=== PATIENT | male | born 1950 | race African-American/Black ===

== ENCOUNTER 2018-06-25 15:48 | Inpatient (IN) ==
--- NOTE | 2018-06-25 16:27 | Emergency Department Note ---
Addendum entered and electronically signed by Eddie Hale DO 06/25/18 20:59: This addendum serves to add additional medical decision-making: I discussed in detail with the patient his left lower extremity DVT, the fact that this occurred while he was on Xarelto, the need for Lovenox. Also discussed concerns about his worsening edema. Heart rate at bedside is 130s to 140s atrial fibrillation. He is not received his home dose metoprolol or clonidine; will provide these as well as 40 mg IV Lasix. Neither the patient nor the family at bedside having additional concerns at this time. Patient has been admitted for continued evaluation and management. Original Note: Disposition Clinical Impression: Anasarca Acute deep vein thrombosis (DVT) of left lower extremity Qualifiers: Affected thrombotic vein of extremity: femoral Qualified Code(s): I82.412 - Acute embolism and thrombosis of left femoral vein Disposition: Admitted As Inpatient Referrals: NONE,PCP [Primary Care Provider] - Forms: ED Satisfaction Letter Time of Disposition: 19:45 General Adult HPI - General Chief complaint: ED Extremity Injury, Lower Stated complaint: lower leg pain Time Seen by Provider: 06/25/18 16:08 Source: patient, family, EMS Nursing Notes Reviewed: Yes Vital Signs Reviewed: Yes - History of Present Illness HPI Narrative: 67-year-old male presents from home for evaluation of worsening scrotal edema, worsening left lower extremity edema. His been ongoing however notably worse or last several days. Patient's son is bedside and describes weeping of the edema both of his scrotum as well as left lower extremity. These areas are exquisitely painful to the patient. He recently had right upper extremity DVT and is currently on Xarelto. He has been compliant with his medications. He is here both for the pain as well as the worsening edema Which has worsened despite his Lasix. History of cardinoid tumor of small intestine, with metastasis to the liver, upper abdominal lymph nodes, diaphragm, intrathoracic lymph nodes. Paracentesis 06/06 secondary to ascites suspected to be from metastatic cancer. Currently full code, receiving cancer treatment. Follows with [facility]. History of atrial fibrillation, chronic kidney disease. ROS: Positive: As above Negative: Fever, chills, nausea, vomiting, chest pains, palpitations, cough, shortness of breath Pain Scale: 5 - Related Data Home Medications Medication Instructions Recorded Confirmed Amlodipine Besylate 10 mg PO DAILY 02/12/17 06/25/18 Metoprolol Tartrate [Lopressor] 100 mg PO BID 02/12/17 06/25/18 cloNIDine HCl [Clonidine HCl] 0.2 mg PO TID 02/12/17 06/25/18 Ergocalciferol (VITAMIN D2) 50,000 unit PO QWEEK 06/03/18 06/25/18 [Vitamin D2] Previous Rx's Medication Instructions Recorded Rivaroxaban [Xarelto] 20 mg PO 1700 #30 tablet 06/08/18 Docusate [Colace] 100 mg PO BID 30 Days #60 capsule 06/12/18 Methadone 10 mg PO Q8HR 30 Days #90 tablet 06/12/18 Furosemide [Lasix] 40 mg PO DAILY #7 tablet 06/23/18 Potassium Chloride 20 meq PO DAILY #7 tab.er.prt 06/23/18 Allergies Allergy/AdvReac Type Severity Reaction Status Date / Time acetaminophen [From Vicodin] Allergy Rash Verified 06/12/18 15:52 hydrocodone [From Vicodin] Allergy Rash Verified 06/12/18 15:52 shellfish derived Allergy Anaphylaxis Verified 06/12/18 15:52 All systems ED: reviewed and negative except as stated. Review of Systems: As Per HPI Past Medical History - Past Medical History Medical history: Reports: cancer, hypertension Surgical history: Reports: knee replacement Psychiatric history: Reports: no psych history - Social History Smoking Status: Current every day smoker Smokeless Tobacco Status: No Alcohol use: Reports: none Drug use: Reports: none Physical Exam Vital Signs Reviewed General: Patient is alert, oriented, and in mild distress from the pain of his edema Head: atraumatic, normocephalic Eye: normal appearance, no scleral icterus, no conjunctival injection ENT: mucous membranes moist, normal external ear exam Neck: normal inspection, trachea midline, full ROM Chest: normal inspection, symmetric chest rise Respiratory: Poor respiratory effort. Bilateral breath sounds are clear without wheezing, crackles, or rhonchi. Cardiovascular: Regular rate and rhythm. No clicks, rubs, gallops, or murmors. Normal heart sounds. Left lower extremity is notably swollen versus right from groin to toes with 3+ pitting edema and weeping of the lower left leg. Patient has edema to the scrotum and penis subsequent penile glans is no longer visible. Abdomen: Bowel sounds present normoactive. Abdomen is soft, nondistended, and nontender. No guarding or rebound. Musculoskeletal: Spontaneously moving all extremities. Skin: warm, dry, intact. Neuro: GCS 15. Alert and oriented x4. Sensation light touch intact in bilateral lower extremity is. Psych: Patient's affect is appropriate for situation. Course Course Narrative: EKG dated 06/25/18 at 17:09 interpreted as atrial fibrillation with a rate of 128. QRS 95, QTC 478. Normal axis. Nonspecific ST-T changes. Compared to previous dated 06/02/2018 showing no acute ischemic changes comparison. - Reevaluation(s) Reevaluation #1: Due to patient being a difficult IV stick with the midline team was able to use ultrasound guided midline placed successfully patient got IV Dilaudid for pain control patient had a Doppler study in his lower extremity. Formal report from the traffic analysis technician states that it is positive for noncompressible left common femoral vein was positive for DVT. Patient be getting 1 mg/kg subcutaneous Lovenox. Awaiting remainder of the labs and then patient will be admitted. Time: 18:35 Reevaluation #2: Patient's DVT study came back positive for left lower extremity DVT that new patient given 1 m/kg subcutaneous Lovenox. Discussed case with the hospitalist, graciously accepted the patient for admission. Patient family so informed. Pain is being managed. Patient minute in stable condition Time: 19:44 Vital Signs Temperature 99.2 F 06/25/18 15:54 Pulse Rate 110 06/25/18 15:54 Respiratory Rate 20 06/25/18 15:54 Blood Pressure 149/109 06/25/18 15:54 O2 Sat by Pulse Oximetry 94 06/25/18 15:54 Temperature 99.2 F 06/25/18 15:54 Pulse Rate 114 06/25/18 19:15 Respiratory Rate 20 06/25/18 19:15 Blood Pressure 154/116 06/25/18 19:15 O2 Sat by Pulse Oximetry 98 06/25/18 19:15 Oxygen Delivery Oxygen Delivery Room Air Medical Decision Making - Lab Data Result diagrams: 06/25/18 17:48 06/25/18 17:48 Lab Results 06/25/18 06/25/18 06/25/18 Range/Units 17:48 17:48 17:48 WBC 23.2 H (4.3-11.1) K/mcL RBC 3.90 L (4.19-5.50) M/mcL Hgb 10.5 L (12.9-16.9) g/dL Hct 31.9 L (37.5-50.1) % MCV 81.8 L (83.0-100.0) fL MCH 26.9 L (28.0-33.3) pg MCHC 32.9 (31.6-35.5) g/dL RDW 15.5 H (11.5-14.5) % Plt Count 218 (140-400) K/mcL MPV 11.5 (9.4-12.4) fL Immature Gran % 0.6 (0-4) % Seg Neutrophils % 92.8 % Lymphocytes % 2.5 % Monocytes % 4.0 % Eosinophils % 0.0 % Basophils % 0.1 % Neutrophils # 21.5 H (1.6-8.9) K/mcL Lymphocytes # 0.6 (0.6-4.6) K/mcL Monocytes # 0.9 (0.0-1.3) K/mcL Eosinophils # 0.0 (0.0-0.6) K/mcL Basophils # 0.0 (0.0-0.2) K/mcL PT 22.0 H (9.4-12.1) Seconds INR 2.0 Sodium 137 (136-145) mEq/L Potassium 3.7 (3.5-5.1) mEq/L Chloride 104 (98-107) mEq/L Carbon Dioxide 23 (23-29) mEq/L BUN 25 H (8-23) mg/dL Creatinine 1.86 H (0.70-1.30) mg/dL Est GFR ( Amer) 44 L (> 60) Est GFR (Non-Af Amer) 36 L (> 60) BUN/Creatinine Ratio 13 (6-26) Glucose 84 (70-105) mg/dL Calculated Osmolality 288 (280-300) Calcium 8.3 L (8.6-10.3) mg/dL Total Bilirubin 1.7 H (0.3-1.0) mg/dL Direct Bilirubin 0.8 H (0.0-0.2) mg/dL Indirect Bilirubin 0.9 (0.0-1.2) mg/dL AST 31 (13-39) Units/L ALT 19 (7-52) Units/L Alkaline Phosphatase 266 H (34-104) Units/L Serum Total Protein 6.7 (6.4-8.9) g/dL Albumin 2.6 L (3.5-5.7) g/dL Globulin 4.1 H (2.4-3.5) g/dL Albumin/Globulin Ratio 0.6 L (1.1-2.2)
--- NOTE | 2018-06-25 16:38 | Emergency Department Note ---
Disposition Clinical Impression: Anasarca Disposition: Still a Patient Forms: ED Satisfaction Letter General Adult HPI - General Chief complaint: ED Extremity Injury, Lower Stated complaint: lower leg pain Time Seen by Provider: 06/25/18 16:08 Source: patient, family, EMS Nursing Notes Reviewed: Yes Vital Signs Reviewed: Yes - History of Present Illness HPI Narrative: Attestation note: Patient was seen with the emergency medicine resident/nurse practitioner/physician patent legal assistant/transitional resident/medical student: Dr. Eddie Hale I have personally performed a face to face evaluation on this patient. I have reviewed and agree with history and physical examination patient management and disposition. Briefly the salient points of the case are as follows: 59-year-old male history of metastatic cancer presents with weeping swollen red and painful left lower extremity involving the entire left lower extremity prior history of DVTs is been put on several toe and it has only been recently in the past 3 months. Patient has had scrotal swelling and generalized anasarca. Patient will undergo diuresis Doppler study left lower extremity to exclude DVT despite being on several toe screening labs pain management patient will be admitted. Providing 30 minutes critical care service this patient. Admission disposition pending Pain Scale: 5 - Related Data Home Medications Medication Instructions Recorded Confirmed Amlodipine Besylate 10 mg PO DAILY 02/12/17 06/12/18 Metoprolol Tartrate [Lopressor] 100 mg PO BID 02/12/17 06/12/18 cloNIDine HCl [Clonidine HCl] 0.2 mg PO TID 02/12/17 06/12/18 Ergocalciferol (VITAMIN D2) 50,000 unit PO QWEEK 06/03/18 06/12/18 [Vitamin D2] Methadone Oral Concentrate 30 mg PO DAILY 06/03/18 06/12/18 [Methadone] Previous Rx's Medication Instructions Recorded Rivaroxaban [Xarelto] 20 mg PO 1700 #30 tablet 06/08/18 Docusate [Colace] 100 mg PO BID 30 Days #60 capsule 06/12/18 Methadone 10 mg PO Q8HR 30 Days #90 tablet 06/12/18 Supplies [SUPPLIES] 1 each .ROUTE DAILY #1 each 06/12/18 Furosemide [Lasix] 40 mg PO DAILY #7 tablet 06/23/18 Potassium Chloride 20 meq PO DAILY #7 tab.er.prt 06/23/18 Allergies Allergy/AdvReac Type Severity Reaction Status Date / Time acetaminophen [From Vicodin] Allergy Rash Verified 06/12/18 15:52 hydrocodone [From Vicodin] Allergy Rash Verified 06/12/18 15:52 shellfish derived Allergy Anaphylaxis Verified 06/12/18 15:52 Past Medical History - Past Medical History Medical history: Reports: cancer, hypertension Surgical history: Reports: knee replacement Psychiatric history: Reports: no psych history - Social History Smoking Status: Current every day smoker Smokeless Tobacco Status: No Alcohol use: Reports: none Drug use: Reports: none Course Vital Signs Temperature 99.2 F 06/25/18 15:54 Pulse Rate 110 06/25/18 15:54 Respiratory Rate 20 06/25/18 15:54 Blood Pressure 149/109 06/25/18 15:54 O2 Sat by Pulse Oximetry 94 06/25/18 15:54 Temperature 99.2 F 06/25/18 15:54 Pulse Rate 110 06/25/18 15:54 Respiratory Rate 20 06/25/18 15:54 Blood Pressure 149/109 06/25/18 15:54 O2 Sat by Pulse Oximetry 94 06/25/18 15:54 Oxygen Delivery Oxygen Delivery Room Air
[2018-06-25] MEDS ORDERED: *HR* HYDROmorphone (PF) 1 MG/ML SYRINGE IVP ONE ×2 (17:56→19:18)
[2018-06-25 18:04] LABS: Basophils % 0.1 %; Hematocrit 31.9 % (37.5-50.1); Hemoglobin 10.5 g/dL (12.9-16.9); Immature Granulocytes % 0.6 % (0-4); Lymphocytes # 0.6 K/mcL (0.6-4.6); Lymphocytes % 2.5 %; Mean Corpuscular HGB Conc 32.9 g/dL (31.6-35.5); Mean Corpuscular Hemoglobin 26.9 pg (28.0-33.3); Mean Corpuscular Volume 81.8 fL (83.0-100.0); Mean Platelet Volume 11.5 fL (9.4-12.4); Monocytes # 0.9 K/mcL (0.0-1.3); Neutrophils # 21.5 K/mcL (1.6-8.9); Platelet Count 218 K/mcL (140-400); Red Cell Distribution Width 15.5 % (11.5-14.5); Segmented Neutrophils % 92.8 %
[2018-06-25 18:23] LABS: Albumin 2.6 g/dL (3.5-5.7); Albumin/Globulin Ratio 0.6 (1.1-2.2); Bilirubin,Direct 0.8 mg/dL (0.0-0.2); Bilirubin,Indirect 0.9 mg/dL (0.0-1.2); Bilirubin,Total 1.7 mg/dL (0.3-1.0); Calcium 8.3 mg/dL (8.6-10.3); Globulin 4.1 g/dL (2.4-3.5); Potassium 3.7 mEq/L (3.5-5.1); Total Protein 6.7 g/dL (6.4-8.9)
[2018-06-25] MEDS ORDERED: *HR* Enoxaparin 150 MG/ML SYRINGE SQ STA (18:34)
--- NOTE | 2018-06-25 20:13 | Internal Med History&Physical ---
<Jere Becerril - Last Filed: 06/25/18 23:28> Date of Encounter: 06/25/18 Time of Encounter: 20:13 Internal Medicine - H&P: HPI History of present illness: Mr. Todd is a 67 year old male presenting with left lower leg pain. Patient states that since a week ago he has been having increasing symptoms of left lower extremity pain/tenderness, swelling, erythema, and warmth. Pain is rated 8.5 out of 10, constant, extending from the left lower hip down to the left middle thigh anteriorly and posteriorly. Nothing has relieved this pain including methadone the patient is on chronically for substance abuse. Patient also notes that he has been having increased swelling of his left testicle since his last admission on 06/08. At that visit his lisinopril, furosemide and HCTZ were held to be cleared by his PCP or developmental behavioral physician. He recently saw his oncologist one week ago and was restarted on furosemide. Patient also endorses chronic epigastric abdominal tenderness and productive cough which has been ongoing for the past couple weeks also seen in his family members. Denies fever, nausea, vomiting, chest pain, palpitations, shortness of breath, pleuritic chest pain, pain in the upper extremities and right lower extremity, changes in stool production, changes in urination. PMH: Hypertension, A. fib on metoprolol, carcinoid tumor of the small intestine, substance abuse on methadone, CKD with baseline creatinine 1.4-1.5., LE DVT, substance abuse on methadone. Labs at admission: WBC 23.2, creatinine 1.86, TBili 1.7, DBili 0.8, DBili 0.8, alk phosp 266 He has history of carcinoid tumor small intestine initially diagnosed in 2004 with recurrence in 2015 showing pleural-based lung nodules, liver lesions, retroperitoneal lymph nodes. On 06/08, he was hospitalized at [place] with anasarca, worsening pain, altered mental status, and extensive right upper extremity DVT. He was given paracentesis and given Zaroxolyn 20 mg daily. He recently underwent a paracentesis on 06/23 which showed slightly hazy fluid. Past Med Surg Social Fam HX - Past Medical History Medical history: cancer, hypertension Additional medical history: liver CA (previous colon CA). blood clot, on xarelto Psychiatric history: no psych history - Past Surgical History Surgical History: knee replacement Additional surgical history: bowel resection - Social History Smoking Status: Current every day smoker Smokeless Tobacco Status: No Alcohol use: none Drug use: none - Family History Mother Living Status: Father Living Status: Internal Medicine - H&P: Meds Amlodipine Besylate 10 mg PO DAILY 02/12/17 [History] Metoprolol Tartrate [Lopressor] 100 mg PO BID 02/12/17 [History] cloNIDine HCl [Clonidine HCl] 0.2 mg PO TID 02/12/17 [History] Ergocalciferol (VITAMIN D2) [Vitamin D2] 50,000 unit PO QWEEK 06/03/18 [History] Rivaroxaban [Xarelto] 20 mg PO 1700 #30 tablet 06/08/18 [Rx] Docusate [Colace] 100 mg PO BID 30 Days #60 capsule 06/12/18 [Rx] Methadone 10 mg PO Q8HR 30 Days #90 tablet 06/12/18 [Rx] Furosemide [Lasix] 40 mg PO DAILY #7 tablet 06/23/18 [Rx] Potassium Chloride 20 meq PO DAILY #7 tab.er.prt 06/23/18 [Rx] Allergy/AdvReac Type Severity Reaction Status Date / Time acetaminophen [From Vicodin] Allergy Rash Verified 06/12/18 15:52 hydrocodone [From Vicodin] Allergy Rash Verified 06/12/18 15:52 shellfish derived Allergy Anaphylaxis Verified 06/12/18 15:52 All Systems PM: A 10-system review of systems was performed and is negative for pertinent findings except as documented above in the HPI. - Constitutional Constitutional: malaise, weakness, no fever(s) - Cardiovascular Cardiovascular ROS IM: no chest pain, no palpitations - Respiratory Respiratory: cough (Cough with clear sputum.) - Gastrointestinal Gastrointestinal: abdominal pain (Mittie Admitted to diffuse abdominal tenderness especially in the epigastric area.), diarrhea (He has sudden diarrhea at baseline.), no change in bowel habits, no hematochezia, no melena - Genitourinary Genitourinary ROS male: scrotal swelling (Scrotal swelling since discharge on 1125), no dysuria, no penile discharge - Neurological Neurological ROS: no behavioral changes (Per family patient does not exhibit altered mental status seen on last admission.) - Constitutional Vitals: Temp Pulse Resp BP Pulse Ox 99.2 F 114 20 154/116 98 06/25/18 15:54 06/25/18 19:15 06/25/18 19:15 06/25/18 19:15 06/25/18 19:15 Exam: . - Head Head exam: Present: atraumatic, normal inspection - Eye Eye exam: Present: EOMI, normal appearance - Neck Neck exam general surgery: Present: supple, trachea midline - Respiratory Respiratory exam: Present: decreased breath sounds, CTAB. Absent: chest wall tenderness - Cardiovascular Cardiovascular exam: Present: RRR, +S1, +S2 - GI/Abdominal GI/Abdominal exam: Present: distended, firm, tenderness (Diffuse abdominal tenderness especially in the epigastric region.) - exam: Present: scrotal swelling (Scrotal swelling noted with drainage.), testicular tenderness. Absent: urethral discharge - Expanded Lower Extremities Exam Hip exam: Present: tenderness (Tenderness extending from his lower leg.) Upper Leg exam: Present: erythema (Erythema starting from his left lower hip down to his mid Calf.), swelling (Left lower extremity is swollen compared to right lower extremity.). Absent: abrasion, deformity, laceration Lower Leg exam: Present: erythema, swelling, tenderness. Absent: laceration - Neurological Exam Neurological exam: Present: alert, oriented X3, no focal deficits. Absent: altered - Psychiatric Psychiatric exam: Present: agitated, normal affect, normal mood - Skin Skin exam: Present: dry, erythema (Erythema in left lower extremity.), intact, warm Internal Med - H&P Results - Labs CBC & Chem 7: 06/25/18 17:48 06/25/18 17:48 Labs: Short CBC 06/25/18 Range/Units 17:48 WBC 23.2 H (4.3-11.1) K/mcL Hgb 10.5 L (12.9-16.9) g/dL Hct 31.9 L (37.5-50.1) % Plt Count 218 (140-400) K/mcL Neutrophils # 21.5 H (1.6-8.9) K/mcL BMP 06/25/18 17:48 Sodium 137 Potassium 3.7 Chloride 104 Carbon Dioxide 23 BUN 25 H Creatinine 1.86 H Glucose 84 Calcium 8.3 L Liver Function 06/25/18 Range/Units 17:48 Total Bilirubin 1.7 H (0.3-1.0) mg/dL Direct Bilirubin 0.8 H (0.0-0.2) mg/dL AST 31 (13-39) Units/L ALT 19 (7-52) Units/L Alkaline Phosphatase 266 H (34-104) Units/L Albumin 2.6 L (3.5-5.7) g/dL - Impressions ITS Impressions Chest X-Ray 06/25/18 16:31 IMPRESSION: Unchanged cardiomegaly without acute disease. D/ / Perez Contreras MD / Perez Contreras MD Interpreting Provider: Perez Contreras MD - Assessment and plan (1) Deep vein thrombosis (DVT) of proximal vein of left lower extremity Current Visit: Yes Status: Acute Assessment and plan: 59-year-old male presenting with left lower extremity pain. Doppler of lower extremities showed proximal DVT. Hold xarelto. Was given lovenox at ED at 6:30 PM, Patient has history of CKD with creatinine currently 1.8 elevated from baseline. Will switch to heparin drip at 6:30 AM when next dose is due. For pain management we will continue his home methadone. We will continue stool softeners for opioid related constipation. Qualifiers: Chronicity: acute Qualified Code(s): I82.4Y2 - Acute embolism and thrombosis of unspecified deep veins of left proximal lower extremity (2) Acute kidney injury superimposed on CKD Current Visit: No Status: Acute Assessment and plan: Patient presenting with creatinine of 1.8 up from baseline of 1.4-1.5 in recent visits. We will consult nephrology. We have discontinued his amlodipine but will continue his Lasix. He was given Lovenox at ED at 6:30 PM. We will discontinue this tomorrow morning at 6:30 AM and replace with heparin drip. (3) Arrhythmia Current Visit: No Status: Suspected Assessment and plan: Continue metoprolol and placed on cardiac monitoring. Qualifiers: Arrhythmia type: atrial fibrillation Atrial fibrillation type: unspecified Qualified Code(s): I48.91 - Unspecified atrial fibrillation (4) Sepsis Current Visit: Yes Status: Acute Assessment and plan: Patient is tachycardic in the 110 to 130s, has an elevated white blood cell count of 23.2meets sepsis criteria. Lactic acid ordered. Blood cultures ordered. Patient also recently had abdominal ascites tapped. That may be a source of infection. We will possibly do abdominal imaging later. Qualifiers: Sepsis type: sepsis due to unspecified organism Qualified Code(s): A41.9 - Sepsis, unspecified organism - Time Spent With Patient Total time spent is greater than 50% in coordination of care (as documented) at patient's floor/unit and/or counseling patient: <Feng Castellanos Evelyn - Last Filed: 06/26/18 07:33> Date of Encounter: 06/26/18 Internal Medicine - H&P: HPI History of present illness: Mr. Todd is a 67 year old male All Systems PM: A 10-system review of systems was performed and is negative for pertinent findings except as documented above in the HPI. - Constitutional Vitals: Temp Pulse Resp BP Pulse Ox 99.4 F 110 18 133/74 95 06/26/18 07:11 06/26/18 07:11 06/26/18 07:11 06/26/18 07:11 06/26/18 07:11 Internal Med - H&P Results - Labs CBC & Chem 7: 06/26/18 01:58 06/26/18 01:58 Labs: Short CBC 06/25/18 06/26/18 Range/Units 17:48 01:58 WBC 23.2 H 23.2 H (4.3-11.1) K/mcL Hgb 10.5 L 9.7 L (12.9-16.9) g/dL Hct 31.9 L 30.0 L (37.5-50.1) % Plt Count 218 214 (140-400) K/mcL Neutrophils # 21.5 H 21.1 H (1.6-8.9) K/mcL BMP 06/25/18 06/26/18 17:48 01:58 Sodium 137 137 Potassium 3.7 3.5 Chloride 104 105 Carbon Dioxide 23 21 L BUN 25 H 27 H Creatinine 1.86 H 1.89 H Glucose 84 79 Calcium 8.3 L 7.9 L Liver Function 06/25/18 Range/Units 17:48 Total Bilirubin 1.7 H (0.3-1.0) mg/dL Direct Bilirubin 0.8 H (0.0-0.2) mg/dL AST 31 (13-39) Units/L ALT 19 (7-52) Units/L Alkaline Phosphatase 266 H (34-104) Units/L Albumin 2.6 L (3.5-5.7) g/dL - Impressions ITS Impressions Chest X-Ray 06/25/18 16:31 IMPRESSION: Unchanged cardiomegaly without acute disease. D/ / Perez Contreras MD / Perez Contreras MD Interpreting Provider: Perez Contreras MD - Time Spent With Patient Total time spent is greater than 50% in coordination of care (as documented) at patient's floor/unit and/or counseling patient: - Attending Attestation I saw and evaluated the patient. I reviewed the residents note, performed my own physical examination and agree with findings and plan as documented in the residents note. Patient seen and examined on 06/26/18. Patient seen with son at bedside. Has diagnosis of metastatic cancer since early 1999's. Has chronic pain, and worsened since developing the DVT. Home dose of methadone given, patient able to sleep with this medication on. Will continue to monitor. Patient was given lovenox in the ER for DVT, will switch to heparin drip after 12 hours due to decreased renal function. Patient started back on lasix as well, has difficulty getting out of bed to urinate. With his scrotal swelling he ends up urinating on himself. He has some wounds on his legs due to the swelling, attempted to place a shields cath eter, however does not seem to fit well. Urology consult placed for better shields catheter fitting as well as to evaluate scrotal swelling. Consult placed to nephrology due to worsening renal function in the setting of lasix need (anasarca) and elevated lactic acid. Fluids contraindicated, appreciate recommendations.
[2018-06-25] MEDS ORDERED: cloNIDine HCl 0.1 MG TABLET PO STA (20:27)
[2018-06-25] MEDS ORDERED: Furosemide 40 MG/4 ML VIAL IVP ONE (20:28)
[2018-06-25] MEDS ORDERED: Naloxone 0.4 MG/ML INJ IVP PRN (21:54)
[2018-06-25] MEDS ORDERED: 0.9 % Sodium Chloride 1,000 ML IVC SCH (22:00)
[2018-06-26] MEDS: *HR* Methadone 10 MG TABLET PO SCH ×3 (01:06→16:33)
[2018-06-26] MEDS ORDERED: *HR* Promethazine 25 MG/ML VIAL IVP PRN (01:45)
[2018-06-26 03:10] LABS: Calcium 7.9 mg/dL (8.6-10.3); Potassium 3.5 mEq/L (3.5-5.1)
[2018-06-26 03:22] LABS: Basophils % 0.1 %; Hemoglobin 9.7 g/dL (12.9-16.9); Immature Granulocytes % 0.7 % (0-4); Lymphocytes # 0.8 K/mcL (0.6-4.6); Lymphocytes % 3.5 %; Mean Corpuscular HGB Conc 32.3 g/dL (31.6-35.5); Mean Corpuscular Hemoglobin 26.6 pg (28.0-33.3); Mean Corpuscular Volume 82.4 fL (83.0-100.0); Mean Platelet Volume 12.3 fL (9.4-12.4); Monocytes # 1.1 K/mcL (0.0-1.3); Monocytes % 4.8 %; Neutrophils # 21.1 K/mcL (1.6-8.9); Platelet Count 214 K/mcL (140-400); Red Blood Count 3.64 M/mcL (4.19-5.50); Red Cell Distribution Width 15.6 % (11.5-14.5); Segmented Neutrophils % 90.9 %
[2018-06-26 03:50] LABS: Platelet Estimate Normal (Normal)
[2018-06-26] MEDS ORDERED: *HR* Heparin 5,000 UNIT/ML VIAL IVP PRN (06:13)
[2018-06-26] MEDS ORDERED: *HR* Heparin 5,000 UNIT/ML VIAL IVP ONE (06:13)
[2018-06-26] MEDS: Heparin 25,000 UNIT/500 ML D5W 25,000 UNIT/500 ML BAG IVC SCH ×2 (06:56→21:40)
[2018-06-26] MEDS ORDERED: Furosemide 40 MG/4 ML VIAL IVP SCH (07:30)
[2018-06-26 07:36] LABS: Hematocrit 28.2 % (37.5-50.1); Hemoglobin 9.5 g/dL (12.9-16.9); Mean Corpuscular HGB Conc 33.7 g/dL (31.6-35.5); Mean Corpuscular Hemoglobin 27.1 pg (28.0-33.3); Mean Corpuscular Volume 80.3 fL (83.0-100.0); Mean Platelet Volume 11.9 fL (9.4-12.4); Platelet Count 207 K/mcL (140-400); Red Blood Count 3.51 M/mcL (4.19-5.50); Red Cell Distribution Width 15.6 % (11.5-14.5)
[2018-06-26 07:43] LABS: Heparin anti-factor XA UFH 0.73 IU/mL (0.30-0.70); Prothrombin Time 22.6 Seconds (9.4-12.1)
--- NOTE | 2018-06-26 08:17 | Urology - Consult Note ---
Addendum entered and electronically signed by Trenton Cartwright MD 06/26/18 16:32: The patient was seen and examined with the physician's clinical assistant. I agree with the assessment and plan. I was able to pass a 16-Kyrgyz coude tipped catheter. The patient does have severe anasarca which has led to scrotal swelling and penile swelling. I advised the primary team to maintain scrotal support as best as possible to minimize his edema, but this is likely due to his overall edematous condition. Okay to leave catheter in place per primary team. Catheter can be removed when no longer needed. Please call with questions. Addendum entered and electronically signed by NORM Covarrubias 06/26/18 12:08: Patient's son called and requested catheter upsize due to leaking. Patient was prepped and draped under normal sterile fashion at bedside. 18Fr coude catheter was attempted x3 by me without success. Dr. Cartwright was able to pass 16Fr coude catheter with some difficulty. Immediate clear urine return, and urine specimen collected in sterile cup for culture. Patient tolerated procedure well with no complications. Original Note: Date of Encounter: 06/26/18 Time of Encounter: 08:14 - Assessment and Plan (1) Difficulty with insertion of urinary catheter Current Visit: Yes Status: Acute Assessment and plan: Patient is a 59-year-old male who presents with difficult insertion of urinary catheter. Discussed upsizing catheter with nurse if needed. Shields is currently indwelling and draining clear urine into bedside bag. Patient denies any cat heter discomfort, and there is no hematuria observed. We will obtain a bladder scan in order to ensure there is adequate drainage of bladder. 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 Patient was admitted through the emergency department for left lower extremity pain, swelling and was diagnosed with DVT. Patient has been following with medical oncology and has declined both hospice home health care. Patient states he is very fatigued and is unable to recall most of his past medical history. Patient declines any significant past urologic history. Patient denies any known family history of malignancy. Patient currently has indwelling 14-Kyrgyz coude catheter, and clear yellow urine is observed and bedside bag. Patient denies any catheter discomfort or feeling of obstruction. Patient's past medical history reviewed internal medicine H&P and in prior oncology progress note from May 2018. Past Med Surg Social Fam HX - Past Medical History Medical history: cancer, hypertension Additional medical history: liver CA (previous colon CA). blood clot, on xarelto Psychiatric history: no psych history - Past Surgical History Surgical History: knee replacement Additional surgical history: bowel resection - Social History Smoking Status: Current every day smoker Packs per day: 1/2 Smokeless Tobacco Status: No Alcohol use: none Drug use: none - Family History Mother Living Status: Father Living Status: Medications and Allergies RX: Amlodipine Besylate 10 mg PO DAILY 02/12/17 [History] RX: Metoprolol Tartrate [Lopressor] 100 mg PO BID 02/12/17 [History] RX: cloNIDine HCl [Clonidine HCl] 0.2 mg PO TID 02/12/17 [History] RX: Ergocalciferol (VITAMIN D2) [Vitamin D2] 50,000 unit PO QWEEK 06/03/18 [History] RX: Rivaroxaban [Xarelto] 20 mg PO 1700 #30 tablet 06/08/18 [Rx] Docusate [Colace] 100 mg PO BID 30 Days #60 capsule 06/12/18 [Rx] RX: Methadone 10 mg PO Q8HR 30 Days #90 tablet 06/12/18 [Rx] Furosemide [Lasix] 40 mg PO DAILY #7 tablet 06/23/18 [Rx] RX: Potassium Chloride 20 meq PO DAILY #7 tab.er.prt 06/23/18 [Rx] Allergy/AdvReac Type Severity Reaction Status Date / Time acetaminophen [From Vicodin] Allergy Rash Verified 06/12/18 15:52 hydrocodone [From Vicodin] Allergy Rash Verified 06/12/18 15:52 shellfish derived Allergy Anaphylaxis Verified 06/12/18 15:52 Review of Systems ROS unobtainable: due to mental status Exam Initial Vital Signs Temp Pulse Resp BP Pulse Ox 99.2 F 110 20 149/109 94 06/25/18 15:54 06/25/18 15:54 06/25/18 15:54 06/25/18 15:54 06/25/18 15:54 - General physical appearance Present: no distress, no pain - Eyes Present: other (patient's eyes are closed) - ENT Present: normal nares, no hearing loss, no congestion - Neck Present: no masses, trachea midline - Respiratory Present: normal respiratory effort - Cardiovascular Cardiovascular exam IM: RRR - Abdomen Abdomen: Present: soft, non tender - Genitourinary normal penis with no external lesions Penis: Present: edema Urethral meatis: Present: patent Testicles: Present: other (scrotal edema ) - Integumentary Present: no rash, no abnormal pigmentation - Neurologic Present: disoriented, other (patient moaning with eyes closed) - Musculoskeletal Present: other (normal posture ) Urology Results - Labs 06/26/18 06:50 06/26/18 01:58 Abnormal lab results WBC 22.3 K/mcL (4.3-11.1) H 06/26/18 06:50 RBC 3.51 M/mcL (4.19-5.50) L 06/26/18 06:50 Hgb 9.5 g/dL (12.9-16.9) L 06/26/18 06:50 Hct 28.2 % (37.5-50.1) L 06/26/18 06:50 MCV 80.3 fL (83.0-100.0) L 06/26/18 06:50 MCH 27.1 pg (28.0-33.3) L 06/26/18 06:50 RDW 15.6 % (11.5-14.5) H 06/26/18 06:50 Neutrophils # 21.1 K/mcL (1.6-8.9) H 06/26/18 01:58 PT 22.6 Seconds (9.4-12.1) H 06/26/18 06:50 Heparin Anti-Xa, Unfract 0.73 IU/mL (0.30-0.70) H 06/26/18 06:50 Carbon Dioxide 21 mEq/L (23-29) L 06/26/18 01:58 BUN 27 mg/dL (8-23) H 06/26/18 01:58 Creatinine 1.89 mg/dL (0.70-1.30) H 06/26/18 01:58 Est GFR ( Amer) 43 (> 60) L 06/26/18 01:58 Est GFR (Non-Af Amer) 36 (> 60) L 06/26/18 01:58 Lactic Acid 2.5 mmol/L (0.5-2.2) H 06/26/18 00:02 Calcium 7.9 mg/dL (8.6-10.3) L 06/26/18 01:58 Total Bilirubin 1.7 mg/dL (0.3-1.0) H 06/25/18 17:48 Direct Bilirubin 0.8 mg/dL (0.0-0.2) H 06/25/18 17:48 Alkaline Phosphatase 266 Units/L (34-104) H 06/25/18 17:48 B-Natriuretic Peptide 679 pg/mL (Less than 100) H 06/26/18 00:02 Albumin 2.6 g/dL (3.5-5.7) L 06/25/18 17:48 Globulin 4.1 g/dL (2.4-3.5) H 06/25/18 17:48 Albumin/Globulin Ratio 0.6 (1.1-2.2) L 06/25/18 17:48 Diabetes panel 06/25/18 06/26/18 Range/Units 17:48 01:58 Sodium 137 137 (136-145) mEq/L Potassium 3.7 3.5 (3.5-5.1) mEq/L Chloride 104 105 (98-107) mEq/L Carbon Dioxide 23 21 L (23-29) mEq/L BUN 25 H 27 H (8-23) mg/dL Creatinine 1.86 H 1.89 H (0.70-1.30) mg/dL Glucose 84 79 (70-105) mg/dL Calcium 8.3 L 7.9 L (8.6-10.3) mg/dL AST 31 (13-39) Units/L ALT 19 (7-52) Units/L Alkaline Phosphatase 266 H (34-104) Units/L Albumin 2.6 L (3.5-5.7) g/dL Calcium panel 06/25/18 06/26/18 Range/Units 17:48 01:58 Calcium 8.3 L 7.9 L (8.6-10.3) mg/dL Albumin 2.6 L (3.5-5.7) g/dL Pituitary panel 06/25/18 06/26/18 Range/Units 17:48 01:58 Sodium 137 137 (136-145) mEq/L Potassium 3.7 3.5 (3.5-5.1) mEq/L Chloride 104 105 (98-107) mEq/L Carbon Dioxide 23 21 L (23-29) mEq/L BUN 25 H 27 H (8-23) mg/dL Creatinine 1.86 H 1.89 H (0.70-1.30) mg/dL Glucose 84 79 (70-105) mg/dL Calcium 8.3 L 7.9 L (8.6-10.3) mg/dL Adrenal panel 18 06/26/18 Range/Units 17:48 01:58 Sodium 137 137 (136-145) mEq/L Potassium 3.7 3.5 (3.5-5.1) mEq/L Chloride 104 105 (98-107) mEq/L Carbon Dioxide 23 21 L (23-29) mEq/L BUN 25 H 27 H (8-23) mg/dL Creatinine 1.86 H 1.89 H (0.70-1.30) mg/dL Glucose 84 79 (70-105) mg/dL Calcium 8.3 L 7.9 L (8.6-10.3) mg/dL Total Bilirubin 1.7 H (0.3-1.0) mg/dL AST 31 (13-39) Units/L ALT 19 (7-52) Units/L Alkaline Phosphatase 266 H (34-104) Units/L Albumin 2.6 L (3.5-5.7) g/dL All other labs normal. Consult Discharge Plan - Plan Referrals: NONE,PCP [Primary Care Provider] -
[2018-06-26] MEDS: Metoprolol 100 MG TABLET PO SCH ×2 (08:25→21:38)
[2018-06-26] MEDS: cloNIDine HCl 0.1 MG TABLET PO SCH ×3 (08:25→21:38)
--- NOTE | 2018-06-26 11:38 | Nephrology Consult Note ---
Addendum entered and electronically signed by Feng Sanchez, 06/26/18 18:18: I examined this patient and my medical decision-making was reviewed with the Resident Physician. I agree with the documented findings, disposition and treatment plan as described except to the extent set forth below. Pleasant 67 y/o gentleman with a pmh of CKD stage III who presented with nephrotic range proteinuria and anasarca. I suspect nephrotic syndrome, mirna si nce he has also developed a DVT. See below for details on work up and recommendations. Will continue to closely follow with you and guiding the diuretic strategy. I thoroughly updated the pt's son who was present, and I answered all his questions -- he thanked me for the time. Original Note: Date of Encounter: 06/26/18 Time of Encounter: 09:15 Assessment and Plan (1) Acute kidney injury Current Visit: Yes Status: Acute - BUN/Cr on presentation of 1.86 - Previous admission Cr of around 1.3-1.7 - Baseline unclear, appears to be stage III CKD - Etiology may be related to nephrotic syndrome, fluid overload, hepatorenal, cardiorenal disease - Serum creatinine on 11/19/17 of 1.39. No previous records other than admission 3 weeks ago. - Clinically fluid overloaded on exam - UA on presentation unremarkable. - Etiology of fluid overload is unclear, however at this time I suspect portal vein congestion vs nephrotic syndrome. Ammonia noted to be elevated at 67 - 24 hour urine protein of 378, 24 hour creatinine of 1184 - MELD score 16. Denies alcohol use but family does describe that he has a history of substance abuse mainly focusing on prescription opioids. - INR 2.0, Albumin 2.6. Lipid panel at last visit not impressive. - Renal ultrasound unremarkable on last visit. - Echocardiogram obtained 06/02/18 shows ejection fraction of 55% with atypical septal motion indicative of bundle branch block and indeterminant diastolic dysfunction Plan - Agree with diuresis, start with 40 mg IV lasix, monitor for urine output. Will order BID - Will obtain additional GN syndrome workup of SINDY, C3/C4, Hepatitis panel. - Continues supportive care, he is eating and drinking well and there is no indication for additional fluids at this time. - Continue to hold home Lisinopril/HCTZ as his blood pressure is relatively well controlled without it - Strict I/Os, renal/cardiac diet (2) Hypoalbuminemia Current Visit: Yes Status: Chronic noted at 2.6 etiology likely multifactorial: Liver disease, malnutrition Encourage dietary intake (3) History of noncompliance with medical treatment Current Visit: Yes Status: Chronic Patient noted multiple times to refuse treatment including workup and Sandostatin for his neuroendocrine tumor (4) Acute kidney injury superimposed on CKD Current Visit: Yes Status: Acute as above. Baseline CKD III (5) Anasarca Current Visit: Yes Status: Acute - Likely multifactorial and unclear in etiology - Possibly related to known liver disease, renal disease, heart disease - Workup for history of present illness as above - Suspect that there may be some element of nephrotic syndrome Recommendations for diuresis as above (6) Deep vein thrombosis (DVT) of proximal vein of left lower extremity Current Visit: Yes Status: Acute As noted on bilateral femoral Doppler ultrasounds Continue heparin drip per primary team Qualifiers: Chronicity: acute Qualified Code(s): I82.4Y2 - Acute embolism and thrombosis of unspecified deep veins of left proximal lower extremity (7) Neuroendocrine cancer Current Visit: Yes Status: Chronic Follows with oncology History of Present Illness - Reason for Consult Consult date: 06/26/18 Acute Kidney Injury, Chronic Kidney Disease - Chief Complaint swelling, weakness - History of Present Illness Mr. Todd presented to the emergency department with complaint of lower left leg pain and swelling. Nephrology was consulted on 06/26/18 for TRISTA. Patient has a past medical history of hypertension, AFib, neuroendocrine tumor rising from the small intestine with known metastasis, CKD III. he was recently admitted to this facility in May 2018 with a similar complaint of swelling and TRISTA. At that time, workup included a renal US which showed no renal abnormalities. Urine studies showed urine creatinine 191, 24 creatinine 191, 24 hour protein 378. He did undergo paracentesis at that time. He has a known history of neuroendocrine tumor which he has been non compliant with follow up with oncology for sandostatin injections. Patient states that he has felt weak and has pain which has been increasing over the last couple days. He has noticed increased swelling starting in his B/l LE and has been increasing and has spread to the abdomen. He has also noticed extensive scrotal swelling in this time. He has not noticed any urinary issues of dysuria, changes in urine, frequency, but has had some issues with hesitancy and weak stream. He denies symptoms of chest pains, nausea, vomiting, fevers, chills, cough. On presentation to the emergency room, vitals were significant for heart rate of 110, respiratory rate 20, saturation of oxygen at 94% on room air. Laboratory results were significant for leukocytosis of 23.2, baseline anemia of 10.5, INR of 2.0, BUNs/creatinine of 25/1.86. Lactic acid was elevated at 2.5, calcium of 8.3, bilirubin 1.7, albumin of 2.6, BNP of 679. Chest x-ray was obtained in the emergency room and showed unchanged cardiomegaly without acute disease. Doppler ultrasound was also obtained and showed bilateral from oral thrombosis. He was started on heparin drip and admitted to the hospital. On interview today, patient states he feels about the same as yesterday. Still has complaints of lower shortly swelling went extension into his abdomen. Some complaints of nausea but denies chest pain, shortness of breath, vomiting. Has had Fung catheter in place with urine output. Continues to deny any fevers, chills. Past Med Surg Social Fam HX - Past Medical History Medical history: cancer, hypertension Additional medical history: liver CA (previous colon CA). blood clot, on xarelto Psychiatric history: no psych history - Past Surgical History Surgical History: knee replacement Additional surgical history: bowel resection - Social History Smoking Status: Current every day smoker Packs per day: 1/2 Smokeless Tobacco Status: No Alcohol use: none Drug use: none - Family History Mother Living Status: Father Living Status: Medications and Allergies Amlodipine Besylate 10 mg PO DAILY 02/12/17 [History] Metoprolol Tartrate [Lopressor] 100 mg PO BID 02/12/17 [History] cloNIDine HCl [Clonidine HCl] 0.2 mg PO TID 02/12/17 [History] Ergocalciferol (VITAMIN D2) [Vitamin D2] 50,000 unit PO QWEEK 06/03/18 [History] Rivaroxaban [Xarelto] 20 mg PO 1700 #30 tablet 06/08/18 [Rx] Docusate [Colace] 100 mg PO BID 30 Days #60 capsule 06/12/18 [Rx] Methadone 10 mg PO Q8HR 30 Days #90 tablet 06/12/18 [Rx] Furosemide [Lasix] 40 mg PO DAILY #7 tablet 06/23/18 [Rx] Potassium Chloride 20 meq PO DAILY #7 tab.er.prt 06/23/18 [Rx] Allergy/AdvReac Type Severity Reaction Status Date / Time acetaminophen [From Vicodin] Allergy Rash Verified 06/12/18 15:52 hydrocodone [From Vicodin] Allergy Rash Verified 06/12/18 15:52 shellfish derived Allergy Anaphylaxis Verified 06/12/18 15:52 Review of Systems Constitutional: fatigue, weakness, weight gain, no anorexia, no chills, no fever(s) Cardiovascular: edema, leg edema, pedal edema, no chest pain, no dyspnea, no dyspnea on exertion, no orthopnea, no palpitations Respiratory: no cough, no dyspnea, no dyspnea on exertion Gastrointestinal: bloating, nausea, no abdominal pain, no cramping, no diarrhea, no vomiting Genitourinary Male: difficulty urinating, scrotal swelling, urinary hesitancy, no dysuria, no hematuria, no urinary frequency, no urinary incontinence, no urinary urgency Integumentary: no lesions, no new lesions Neurological: weakness, no confusion, no syncope, no tingling Exam - Vital Signs Vital signs: Initial Vital Signs Temp Pulse Resp BP Pulse Ox 99.2 F 110 20 149/109 94 06/25/18 15:54 06/25/18 15:54 06/25/18 15:54 06/25/18 15:54 06/25/18 15:54 Vital Signs - Last 8 Hours Temp Pulse Resp BP Pulse Ox 06/26/18 07:11 99.4 F 110 18 133/74 95 Intake and Output 06/25/18 06/26/18 06/26/18 23:59 07:59 15:59 Other: Weight 129.7 kg - General Appearance General appearance: well-developed, well-nourished, appears started age, obese Exam: Gen.: Vitals noted. No acute distress. AAOx3, resting comfortably in bed. Obese. HEENT: oropharynx clear, Normocephalic, atraumatic, MMM Cardiac: RRR, no murmur, +S1/S2, No BLE edema Pulmonary: CTA bilaterally, no wheezes, rales or rhonchi, equal chest expansion, unlabored breathing Abdomen: soft, nontender, BS noted, no guarding, hepatomegaly. Distended and firm. Anasarca. Skin: warm and dry, Blistering lesions on bilateral LE. MSK: ROM not assessed, no joint swelling noted, gait no assessed while in bed. Extremities with 2-3+ edema extending to abdomen. Scrotal swelling. : Fung in place. scrotal swelling Neuro: A&Ox3, moves all extremities, no focal deficits, sensation intact Psych: Appropriate mood and behavior, AOx3 Results - Lab Results 06/26/18 06:50 06/26/18 01:58 Most recent lab results Calcium 7.9 mg/dL (8.6-10.3) L 06/26/18 01:58 Consult Discharge Plan - Plan Referrals: NONE,PCP [Primary Care Provider] -
[2018-06-26] MEDS: Furosemide 40 MG/4 ML VIAL IVP SCH ×2 (11:50→16:34)
[2018-06-26 12:04] LABS: Bilirubin,Urine Negative (Negative); Blood,Urine Negative (Negative); Clarity,Urine Clear (Clear); Color,Urine Yellow (Yellow); Glucose,Urine (UA) Normal (Normal); Ketones,Urine Negative (Negative); Leukocyte Esterase,Urine Negative (Negative); Nitrite,Urine Negative (Negative); Protein,Urine Negative (Neg-Trace); Urobilinogen,Urine Normal (Normal)
--- NOTE | 2018-06-26 13:47 | Electrocardiograph Report ---
[address] [place] [address] Test Date: 2018-06-25 Pat Name: Earnest Todd Department: EXAM5 Room: 2A Gender: M Logistics Assistant: : 1950 Requested By: Eddie Hale Order Number: [id number] Reading MD: Raman Bob Measurements Intervals Cisco Rate: 128 P: AL: QRS: 48 QRSD: 95 T: 103 QT: 331 QTc: 478 Interpretive Statements Atrial fibrillation Anterior infarct, old Low voltage Nonspecific T abnormalities, lateral leads Electronically Signed On 06-26-2018 13:45:49 EST by Raman Bob
[2018-06-26] MEDS ORDERED: levoFLOXacin 750 MG TABLET PO SCH (16:30)
[2018-06-26 16:39] LABS: Hepatitis A Antibody IgM Nonreactive (Nonreactive); Hepatitis B Core IgM Nonreactive (Nonreactive); Hepatitis B Surface Antigen Nonreactive (Nonreactive); Hepatitis C Virus Antibody Nonreactive (Nonreactive)
--- NOTE | 2018-06-26 17:02 | Event Note ---
Date of Encounter: 06/26/18 Time of Encounter: 16:51 Examined the patient and review of the clinical history. Review of the consult and noticed urologist and human resources coordinator. Will continue IV Lasix with a strict I&O's. Fung catheter in place. Patient also has open excoriation wound over the buttock wound care consultation done. Patient is state that he has been on Xarelto after getting discharge recently. Patient got admitted for new onset of lower extremity DVT while on Xarelto therefore consulted probation and parole officer. Raised white count therefore Levaquin is started for possible cellulitis. Abdomen nontender at this time but had intermittent abdominal pain before admission. Patient has been following oncologists Dr. hill on OPD basis. Patient also had almost 2-3 L paracentesis on OPD basis recently.
[2018-06-26 22:54] LABS: Complement C3 112 mg/dL (87-200)
[2018-06-27] MEDS: *HR* Methadone 10 MG TABLET PO SCH ×4 (00:14→23:27)
[2018-06-27 02:10] LABS: Basophils % 0.1 %; Eosinophils # 0.2 K/mcL (0.0-0.6); Eosinophils % 0.9 %; Hematocrit 28.5 % (37.5-50.1); Hemoglobin 9.1 g/dL (12.9-16.9); Immature Granulocytes % 4.5 % (0-4); Lymphocytes % 5.5 %; Mean Corpuscular HGB Conc 31.9 g/dL (31.6-35.5); Mean Corpuscular Volume 81.4 fL (83.0-100.0); Mean Platelet Volume 11.1 fL (9.4-12.4); Monocytes # 1.3 K/mcL (0.0-1.3); Monocytes % 6.7 %; Neutrophils # 15.4 K/mcL (1.6-8.9); Platelet Count 214 K/mcL (140-400); Red Cell Distribution Width 15.1 % (11.5-14.5); Segmented Neutrophils % 82.3 %
[2018-06-27 02:32] LABS: Calcium 7.7 mg/dL (8.6-10.3); Potassium 3.1 mEq/L (3.5-5.1)
[2018-06-27] MEDS: *HR* Heparin 5,000 UNIT/ML VIAL IVP PRN ×2 (02:38→10:06)
[2018-06-27] MEDS: Furosemide 40 MG/4 ML VIAL IVP SCH ×2 (08:25→16:19)
--- NOTE | 2018-06-27 10:07 | Nephrology Progress Note ---
Addendum entered and electronically signed by Feng Sanchez, 06/27/18 18:29: I examined this patient and my medical decision-making was reviewed with the Resident Physician. I agree with the documented findings, disposition and treatment plan as described except to the extent set forth below. His volume status is slowly improving and his SCr appears to be nicely tolerating his current diuretics: continue. Original Note: Date of Encounter: 06/27/18 Time of Encounter: 09:12 - Assessment and Plan (1) Acute kidney injury Current Visit: Yes Status: Acute - BUN/Cr on presentation of 25/1.86 - Previous admission Cr of around 1.3-1.7 - Kidney function stable stay with BUNs/creatinine of 27/1.79. Fluid status is greatly improved. - Baseline unclear, appears to be stage III CKD - Etiology may be related to nephrotic syndrome, fluid overload, hepatorenal, cardiorenal disease - Serum creatinine on 11/19/17 of 1.39. No previous records other than admission 3 weeks ago. - Clinically fluid overloaded on exam - UA on presentation unremarkable. - Etiology of fluid overload is unclear, however at this time I suspect portal vein congestion vs nephrotic syndrome. Ammonia noted to be elevated at 67 - 24 hour urine protein of 378, 24 hour creatinine of 1184 - MELD score 16. Denies alcohol use but family does describe that he has a history of substance abuse mainly focusing on prescription opioids. - INR 2.0, Albumin 2.6. Lipid panel at last visit not impressive. - Renal ultrasound unremarkable on last visit. - Echocardiogram obtained 06/02/18 shows ejection fraction of 55% with atypical septal motion indicative of bundle branch block and indeterminant diastolic dysfunction - Hepatitis panel negative, GN workup pending Plan - Recommend continued diuresis, good urine output yesterday. Continue 40 mg Lasix IV twice a day - Continues supportive care, he is eating and drinking well and there is no indication for additional fluids at this time. - Continue to hold home Lisinopril/HCTZ as his blood pressure is relatively well controlled without it - Strict I/Os, renal/cardiac diet (2) Hypoalbuminemia Current Visit: Yes Status: Chronic noted at 2.6 etiology likely multifactorial: Liver disease, malnutrition Encourage dietary intake (3) History of noncompliance with medical treatment Current Visit: Yes Status: Deleted Patient noted multiple times to refuse treatment including workup and Sandostatin for his neuroendocrine tumor (4) Acute kidney injury superimposed on CKD Current Visit: Yes Status: Acute As above. Baseline chronic kidney disease stage III (5) Anasarca Current Visit: Yes Status: Acute - Likely multifactorial and unclear in etiology - Possibly related to known liver disease, renal disease, heart disease - Workup for history of present illness as above - Suspect that there may be some element of nephrotic syndrome Recommendations for diuresis as above (6) Deep vein thrombosis (DVT) of proximal vein of left lower extremity Current Visit: Yes Status: Acute As noted on bilateral femoral Doppler ultrasounds Continue heparin drip per primary team Qualifiers: Chronicity: acute Qualified Code(s): I82.4Y2 - Acute embolism and thrombosis of unspecified deep veins of left proximal lower extremity (7) Neuroendocrine cancer Current Visit: Yes Status: Chronic Following with oncology Subjective Principal diagnosis: Anasarca, zohreh Interval history: Patient was seen and examined up at since morning. Overall he states that he feels possibly a little bit better. His swelling is mildly improved. He does have a complaint this morning that he has been unable to have a bowel movement despite the urge and effort. Continues to deny any shortness of breath, nausea, vomiting. He is still having some pain in bilateral lower extremities and his back. Objective - Vital Signs Vital signs: Vital Signs Temp Pulse Resp BP Pulse Ox 06/27/18 07:41 98.8 F 109 18 93/58 95 06/27/18 04:53 99.5 F 102 18 123/76 95 06/27/18 00:40 98.6 F 110 18 150/71 95 06/26/18 22:03 98 F 116 18 142/73 96 06/26/18 16:32 98.2 F 112 19 155/81 95 06/26/18 11:20 99.2 F 109 16 125/77 95 Intake and Output 06/26/18 06/27/18 06/27/18 23:59 07:59 15:59 Intake Total 350 / 350 547 / 547 220 / 220 Output Total 1450 / 1450 350 / 350 Balance -1100 / -1100 197 / 197 220 / 220 Intake: IV Fluids 200 / 200 147 / 147 220 / 220 Heparin 25,000 UNIT/500 ML D5W 200 / 200 147 / 147 220 / 220 25,000 unit In 500 ml @ 14 UNIT /KG/HR 36.316 mls/hr IVC . [id number] [facility] Rx#:[id number] Oral 150 / 150 400 / 400 Output: Catheter 1450 / 1450 350 / 350 Other: Meal Dinner unsure what he was eating..appeared to be food from home, was almost done Percent of Meal Consumed 30% Weight 130.1 kg Patient Weight 06/27/18 23:59 Weight 130.1 kg - General Appearance Exam: Gen.: Vitals noted. No acute distress. AAOx3, resting comfortably in bed. Obese. HEENT: oropharynx clear, Normocephalic, atraumatic, MMM Cardiac: RRR, no murmur, +S1/S2, bilateral lower extremity edema is improved with continued cracking of skin. Pulmonary: CTA bilaterally, no wheezes, rales or rhonchi, equal chest expansion, unlabored breathing Abdomen: soft, nontender, BS noted, no guarding, hepatomegaly. Distended and firm. Anasarca. Mildly improved Skin: warm and dry, Blistering lesions on bilateral LE. MSK: ROM not assessed, no joint swelling noted, gait no assessed while in bed. Extremities with 2-3+ edema extending to abdomen. Scrotal swelling. : Fung in place. scrotal swelling, 600 mL yellow urine Neuro: A&Ox3, moves all extremities, no focal deficits, sensation intact Psych: Appropriate mood and behavior, AOx3 - Lab 06/27/18 02:00 06/27/18 02:00 Most recent lab results Calcium 7.7 mg/dL (8.6-10.3) L 06/27/18 02:00 Consult Discharge Plan - Plan Referrals: NONE,PCP [Primary Care Provider] -
[2018-06-27] MEDS: cloNIDine HCl 0.1 MG TABLET PO SCH ×3 (10:48→20:14)
[2018-06-27] MEDS: Metoprolol 100 MG TABLET PO SCH ×2 (10:48→20:14)
[2018-06-27] MEDS: cefTRIAXone 2,000 MG in Water for inj. (sterile) 20 ML 20 ML IVP SCH (10:48)
--- NOTE | 2018-06-27 11:03 | Internal Med Progress Note ---
Hospitalist Progress Note - Encounter Date of Encounter: 06/27/18 Time of Encounter: 10:59 - Subjective Interval History: Patient lying on bed comfortably. Son at bedside. Reviewed the lab with trending down white count and creatinine level. Low potassium level. Normal ammonia. Blood culture with no growth . Denies fever chills nausea vomiting headache dizziness chest pain shortness of breath abdominal pain. - Exam Vitals: Temp Pulse Resp BP Pulse Ox 98.7 F 111 18 147/77 94 06/27/18 10:33 06/27/18 10:33 06/27/18 10:33 06/27/18 10:33 06/27/18 10:33 Exam: General appearance: No acute distress, A&O X 3. Morbid obese. Son at bedside Head exam: Atraumatic Eye exam: EOMI, PERRLA ENT exam: Moist oral mucosa Neck nontender, supple Respiratory exam: Clear to auscultation bilaterally Cardiovascular exam: Regular rate and rhythm, no systolic murmur Abdominal exam: Soft, nontender, nondistended, positive bowel sounds Extremities exam: Bilateral lower extremity +2 pedal edema. Left lower extremity better erythema and tenderness-cellulitis. Calf tenderness positive Homans sign positive Superficial skin excoriation in the lower back /buttock Neurological exam: CN II-XII intact, no focal deficits. . - Assessment and Plan (1) Deep vein thrombosis (DVT) of proximal vein of left lower extremity Current Visit: Yes Status: Acute Assessment and Plan: 59-year-old male presenting with left lower extremity pain. Doppler of lower extremities showed proximal DVT. Hold xarelto. Was given lovenox at ED at 6:30 PM, Patient has history of CKD with creatinine currently 1.8 elevated from baseline. At present patient is on heparin drip. Consulted assistant plant controller for further management. Patient had new onset of lower extremity DVT even on Xarelto. (2) Cellulitis Current Visit: Yes Status: Acute Assessment and Plan: Of left lower extremity and also possible buttock due to superficial excoriation. Patient had leukocytosis therefore antibiotic Rocephin is started. Continue to monitor. (3) Arrhythmia Current Visit: No Status: Suspected Assessment and Plan: Continue metoprolol and placed on cardiac monitoring. (4) Acute kidney injury superimposed on CKD Current Visit: Yes Status: Acute Assessment and Plan: Patient presenting with creatinine of 1.8 up from baseline of 1.4-1.5 in recent visits. Onboard ux research associate and is started IV Lasix and hold on lisinopril. Trending down creatinine level. Avoid nephrotoxic drug. (5) Sepsis Current Visit: Yes Status: Acute Assessment and Plan: Most likely due to underlying cellulitis. On admission Patient is tachycardic in the 110 to 130s, has an elevated white blood cell count of 23.2 with raised lactic acidmeets sepsis criteria. Repeat lactic acid normal. Blood cultures with no growth yet. Patient also recently had abdominal ascites tapped but no abdomen tenderness on examination. (6) Difficulty with insertion of urinary catheter Current Visit: Yes Status: Acute Assessment and Plan: Consulted urologists for successful for a catheter insertion. Fung in place (7) Neuroendocrine carcinoma Current Visit: Yes Status: Acute Assessment and Plan: Consulted oncologist. At present no treatment but has been following Dr. hill outpatient. (8) Substance abuse Current Visit: No Status: Chronic Assessment and Plan: Continue methadone. - Time Spent with Patient Total time spent is greater than 50% in coordination of care (as documented) at patient's floor/unit and/or counseling patient: Internal Medicine: Result - Labs CBC & Chem 7: 06/27/18 02:00 06/27/18 02:00 Labs: Short CBC 06/27/18 Range/Units 02:00 WBC 18.8 H (4.3-11.1) K/mcL Hgb 9.1 L (12.9-16.9) g/dL Hct 28.5 L (37.5-50.1) % Plt Count 214 (140-400) K/mcL Neutrophils # 15.4 H (1.6-8.9) K/mcL BMP 06/26/18 06/27/18 01:58 02:00 Sodium 137 134 L Potassium 3.5 3.1 L Chloride 105 103 Carbon Dioxide 21 L 25 BUN 27 H 27 H Creatinine 1.89 H 1.78 H Glucose 79 91 Calcium 7.9 L 7.7 L Urine 06/26/18 Range/Units 11:49 Urine Color Yellow (Yellow) Urine Clarity Clear (Clear) Urine pH 6.0 (5.0-8.0) pH Units Ur Specific [place] 1.010 (1.010-1.025) Urine Protein Negative (Neg-Trace) mg/dL Urine Glucose (UA) Normal (Normal) mg/dL - ABG Interpretation ABG results: PT/INR, D-dimer PT 22.6 Seconds (9.4-12.1) H 06/26/18 06:50 Consult Discharge Plan - Plan Referrals: NONE,PCP [Primary Care Provider] - (1) Deep vein thrombosis (DVT) of proximal vein of left lower extremity Qualifiers: Chronicity: acute Qualified Code(s): I82.4Y2 - Acute embolism and thrombosis of unspecified deep veins of left proximal lower extremity (2) Cellulitis Qualifiers: Site of cellulitis: extremity Site of cellulitis of extremity: lower extremity Laterality: left Qualified Code(s): L03.116 - Cellulitis of left lower limb (3) Arrhythmia Qualifiers: Arrhythmia type: atrial fibrillation Atrial fibrillation type: unspecified Qualified Code(s): I48.91 - Unspecified atrial fibrillation (5) Sepsis Qualifiers: Sepsis type: sepsis due to unspecified organism Qualified Code(s): A41.9 - Sepsis, unspecified organism
[2018-06-27] MEDS ORDERED: Sennosides 8.6 MG TABLET PO PRN (11:10)
[2018-06-27] MEDS: Heparin 25,000 UNIT/500 ML D5W 25,000 UNIT/500 ML BAG IVC SCH (13:36)
--- NOTE | 2018-06-27 14:03 | Oncology Inp Consult Note ---
<Sendy Martinez L - Last Filed: 06/27/18 15:37> Date of Encounter: 06/27/18 Time of Encounter: 13:15 Assessment and Plan (1) Carcinoid tumor Status: Chronic Assessment and plan: With generalized anasarca, right upper extremity thrombosis (new acute BLE DVT), fluid retention possibly due to liver changes due to metastatic carcinoid. S/P Paracentesis 06/06/18 with pathology revealing inflammatory cells, few atypical cells- CEA negative, synaptophysin negative, chromogranin negative, CD X2 negative. S/P Paracentesis 2500 cc of serous ascites on 06/23/2018, cytology reveals reactive mesothelial cells and rare atypical cells. He has not had a repeat biopsy due to anti-coag and recent extensive DVT to see for progressive changes in path, he was planned for outpatient CT scan liver biopsy within the next month. Plan: Continue heparin gtt, AC TBD at discharge Dependant upon hospital course may obtain liver bx next week if patient is still in house, continue heparin gtt for this reason As discussed above, liver findings and fluid accumulation may be multifactorial and partially secondary to malignancy, there is concern for progression to higher grade neuroendocrine carcinoma although fluid cytology has been negative Further treatment recommendation TBD (2) DVT (deep venous thrombosis) Status: Acute Assessment and plan: Venous Doppler on 06/25/2018 revealed Bilateral common femoral veins demonstrate acute thrombosis. As mentioned, patient had extensive right upper extremity DVT on recent prior admission and was discharged on Xarelto Compliance with Xarelto is of question, will need to discuss with patients son Plan: Continue heparin gtt at this time AC plan for discharge is TBD, may consider lovenox after [place] check Qualifiers: DVT location: upper extremity Affected thrombotic vein of extremity: axillary Chronicity: acute Laterality: right Qualified Code(s): I82.A11 - Acute embolism and thrombosis of right axillary vein (3) Acute kidney injury superimposed on CKD Status: Acute Assessment and plan: Appears to be improving with diuresis, nephrology following, recs appreciated - Data of Consult Patient: known to practice within the last 3 years Consult date: 06/27/18 Requesting Physician: Vida Cummins MD Primary Care Provider: PCP NONE - Consult Narrative Reason for consult: small bowel neuroendocrine carcinoma History of present illness: Mr. 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 Patient had a liver biopsy that showed metastatic neuroendocrine cancer. On Sandostatin LAR, reimaging was completed in October 2016 when he had a MRI that did not show any progression of liver lesions. Patient was scheduled for Sandostatin monthly injections after he was seen here in February 2017, he did not show up for clinic visits for infusion visits for injections. It appears that last dose of sandostatin was given in November 2017, injections have been only intermittent due to his noncompliance. He was hospitalized in May 2018 with anasarca, worsening pain and altered mental status. He was noted to have right upper extremity extensive DVT. Imaging without contrast revealed concern for liver lesions not clearly delineated, mesenteric nodularity due to edema versus omental caking. He underwent a diagnostic paracentesis which showed mesothelial inflammatory cells. He did not have a liver biopsy as he was started on anti-coagulation. He was discharged on Xarelto. Mr. Todd most recently presented to [facility] ER with left lower leg pain. Patient states that since a week ago he has been having increasing symptoms of left lower extremity pain/tenderness, swelling, erythema, and warmth. Nothing has relieved this pain including methadone the patient is on chronically for substance abuse. Patient also notes that he has been having increased swelling of his left testicle since his last admission on 06/08. Past Med Surg Social Fam HX - Past Medical History Medical history: cancer, hypertension Additional medical history: liver CA (previous colon CA). blood clot, on xarel to Psychiatric history: no psych history - Past Surgical History Surgical History: knee replacement Additional surgical history: bowel resection - Social History Smoking Status: Current every day smoker Packs per day: 1/2 Smokeless Tobacco Status: No Alcohol use: none Drug use: none - Family History Father Living Status: Mother Living Status: Medications and Allergies RX: Amlodipine Besylate 10 mg PO DAILY 02/12/17 [History] RX: Metoprolol Tartrate [Lopressor] 100 mg PO BID 02/12/17 [History] RX: cloNIDine HCl [Clonidine HCl] 0.2 mg PO TID 02/12/17 [History] RX: Ergocalciferol (VITAMIN D2) [Vitamin D2] 50,000 unit PO QWEEK 06/03/18 [History] RX: Rivaroxaban [Xarelto] 20 mg PO 1700 #30 tablet 06/08/18 [Rx] Docusate [Colace] 100 mg PO BID 30 Days #60 capsule 06/12/18 [Rx] RX: Methadone 10 mg PO Q8HR 30 Days #90 tablet 06/12/18 [Rx] Furosemide [Lasix] 40 mg PO DAILY #7 tablet 06/23/18 [Rx] RX: Potassium Chloride 20 meq PO DAILY #7 tab.er.prt 06/23/18 [Rx] Allergy/AdvReac Type Severity Reaction Status Date / Time acetaminophen [From Vicodin] Allergy Rash Verified 06/12/18 15:52 hydrocodone [From Vicodin] Allergy Rash Verified 06/12/18 15:52 shellfish derived Allergy Anaphylaxis Verified 06/12/18 15:52 Constitutional: Present: fatigue, weakness. Absent: anorexia, chills, fever(s), weight loss Eyes: Absent: change in vision Nose, mouth and throat: Absent: dysphagia, odynophagia Cardiovascular: Absent: chest pain Respiratory: Present: cough, dyspnea. Absent: hemoptysis Gastrointestinal: Present: abdominal pain, bloating Genitourinary: Present: scrotal swelling. Absent: dysuria Integumentary: Present: as per HPI Additional comments: LLE edema/pain/erythema Neurological: Absent: focal weakness, frequent falls Psychiatric: Present: as per HPI Endocrine: Present: fatigue Hematologic/Lymphatic: Absent: easy bleeding, lymphadenopathy Oncology - Exam - Constitutional General appearance: cooperative, disheveled, no acute distress, obese, no febrile Exam: chronically ill appearing - Head Head exam: Present: atraumatic - ENT ENT exam: Present: mucous membranes moist, normal oropharynx - Respiratory Respiratory exam: Present: decreased breath sounds. Absent: respiratory distress - Cardiovascular Cardiovascular exam: Present: RRR, +S1, +S2 - GI/Abdominal GI/Abdominal exam: Present: distended, normal bowel sounds, soft. Absent: tenderness - Extremities Exam Additional comments: BLE edema (L>R), generalized edema - Neurological Exam Neurological exam: Present: alert, oriented X3, no focal deficits, strengths equal and symetr throughout - Psychiatric Psychiatric exam: Present: flat affect Additional comments: appears drowsy but responds to voice, this appears to be patients baseline - Skin Skin exam: Present: dry, intact, normal color, warm Consult Discharge Plan - Plan Referrals: NONE,PCP [Primary Care Provider] - Inpatient Charges Provider: Dr. Sean Licona <LivanLiam - Last Filed: 06/27/18 17:37> Date of Encounter: 06/27/18 - Data of Consult Requesting Physician: Vida Cummins MD Primary Care Provider: PCP NONE - Attending Attestation Diuresis per nephrology, rule out nephrotic syndrome. Hypercoagulability, DVT right upper extremity and acute in bilateral lower extremities need to be on heparin drip anti-coag to continue without interruption. Pain due to acute DVT, abdominal distention and anasarca. Prior paracentesis cytology did not show any malignancy. I examined this patient and my medical decision-making was reviewed with the Advanced Practice Nurse, Sendy martinez. I agree with the documented findings, disposition and treatment plan as described except to the extent set forth below. Inpatient Charges Provider: Dr. Sean Licona Consult - Inpatient: [id number]
--- NOTE | 2018-06-27 14:35 | Urology Progress Note ---
Date of Encounter: 06/27/18 Time of Encounter: 14:00 - Assessment and Plan (1) Difficulty with insertion of urinary catheter Current Visit: Yes Status: Acute Assessment and plan: Patient is a 67-year-old male who presents with a history of metastatic neuroendocrine cancer, diffuse anasarca, and difficult urinary catheter placem ent. Catheter is in place and draining clear urine. Patient has no prior history of urinary retention. Primary team may manage catheter. Patient may have catheter removed for discharge if he is able to void spontaneously. If patient is discharged with catheter, he may follow up within 1 week for an outpatient voiding trial. (2) Anasarca Current Visit: Yes Status: Acute (3) Neuroendocrine carcinoma Current Visit: Yes Status: Acute Progress Note Subjective: no new complaints Narrative: Patient seen and examined lying in bed in no apparent distress. Son is at patient's bedside. Fung catheter is indwelling and draining clear urine into bedside bag. Patient denies catheter discomfort or feeling of obstruction. Objective Initial Vital Signs Temp Pulse Resp BP Pulse Ox 99.2 F 110 20 149/109 94 06/25/18 15:54 06/25/18 15:54 06/25/18 15:54 06/25/18 15:54 06/25/18 15:54 - General physical appearance Present: well developed, no distress, no pain - Respiratory Present: normal expansion, normal respiratory effort - Abdomen Present: distended - Genitourinary Urine Appearance: Present: Clear - Integumentary Present: no rash, no abnormal pigmentation - Musculoskeletal Present: normal posture - Psychiatric Present: oriented to time, oriented to person, oriented to place, speech is normal, memory intact - Labs 06/27/18 02:00 06/27/18 02:00 Diabetes panel 06/26/18 06/27/18 Range/Units 01:58 02:00 Sodium 137 134 L (136-145) mEq/L Potassium 3.5 3.1 L (3.5-5.1) mEq/L Chloride 105 103 (98-107) mEq/L Carbon Dioxide 21 L 25 (23-29) mEq/L BUN 27 H 27 H (8-23) mg/dL Creatinine 1.89 H 1.78 H (0.70-1.30) mg/dL Glucose 79 91 (70-105) mg/dL Calcium 7.9 L 7.7 L (8.6-10.3) mg/dL Calcium panel 06/26/18 06/27/18 Range/Units 01:58 02:00 Calcium 7.9 L 7.7 L (8.6-10.3) mg/dL Pituitary panel 06/26/18 06/27/18 Range/Units 01:58 02:00 Sodium 137 134 L (136-145) mEq/L Potassium 3.5 3.1 L (3.5-5.1) mEq/L Chloride 105 103 (98-107) mEq/L Carbon Dioxide 21 L 25 (23-29) mEq/L BUN 27 H 27 H (8-23) mg/dL Creatinine 1.89 H 1.78 H (0.70-1.30) mg/dL Glucose 79 91 (70-105) mg/dL Calcium 7.9 L 7.7 L (8.6-10.3) mg/dL Adrenal panel 06/26/18 06/27/18 Range/Units 01:58 02:00 Sodium 137 134 L (136-145) mEq/L Potassium 3.5 3.1 L (3.5-5.1) mEq/L Chloride 105 103 (98-107) mEq/L Carbon Dioxide 21 L 25 (23-29) mEq/L BUN 27 H 27 H (8-23) mg/dL Creatinine 1.89 H 1.78 H (0.70-1.30) mg/dL Glucose 79 91 (70-105) mg/dL Calcium 7.9 L 7.7 L (8.6-10.3) mg/dL Consult Discharge Plan - Plan Referrals: NONE,PCP [Primary Care Provider] -
[2018-06-27] MEDS: MICONAZOLE NITRATE 57 GM TUBE TP SCH (22:45)
[2018-06-28] MEDS: Heparin 25,000 UNIT/500 ML D5W 25,000 UNIT/500 ML BAG IVC SCH ×3 (01:05→23:59)
[2018-06-28 06:42] LABS: Basophils # 0.1 K/mcL (0.0-0.2); Basophils % 0.3 %; Eosinophils # 0.4 K/mcL (0.0-0.6); Eosinophils % 2.6 %; Hematocrit 30.3 % (37.5-50.1); Hemoglobin 9.9 g/dL (12.9-16.9); Immature Granulocytes % 5.4 % (0-4); Lymphocytes # 1.2 K/mcL (0.6-4.6); Lymphocytes % 7.7 %; Mean Corpuscular HGB Conc 32.7 g/dL (31.6-35.5); Mean Corpuscular Hemoglobin 26.3 pg (28.0-33.3); Mean Corpuscular Volume 80.4 fL (83.0-100.0); Monocytes # 1.3 K/mcL (0.0-1.3); Monocytes % 7.9 %; Platelet Count 275 K/mcL (140-400); Red Blood Count 3.77 M/mcL (4.19-5.50); Red Cell Distribution Width 15.6 % (11.5-14.5); Segmented Neutrophils % 76.1 %
[2018-06-28 06:49] LABS: Calcium 7.8 mg/dL (8.6-10.3); Potassium 3.3 mEq/L (3.5-5.1)
[2018-06-28 07:40] LABS: Platelet Estimate Normal (Normal)
--- NOTE | 2018-06-28 08:47 | Nephrology Progress Note ---
Date of Encounter: 06/28/18 Time of Encounter: 10:20 - Assessment and Plan (1) Anasarca Current Visit: Yes Status: Acute Continue IV diuresis as his volume status is slowly correcting (however he remains every edematous), plus his SCr appears to be diuretic this diuretic strategy. Replete KCl. Cont to follow a renal protective strategy, as able. Strict I/Os and daily weights and his SCr will help guide diuresis and the complex MDM and E/M. I will be available on Saturday, if needed, please feel free to call or page me. My colleague Dr. Joshi will be on-service starting Saturday. Thank you. (2) Acute kidney injury superimposed on CKD Current Visit: Yes Status: Acute See above (3) Cellulitis Current Visit: Yes Status: Acute As per primary Qualifiers: Site of cellulitis: extremity Site of cellulitis of extremity: lower extremity Laterality: left Qualified Code(s): L03.116 - Cellulitis of left lower limb (4) Neuroendocrine carcinoma Current Visit: Yes Status: Acute Followed by [facility] (5) Hypokalemia Current Visit: No Status: Acute See above. Most likely from the diuretics. Subjective Principal diagnosis: Anasarca, zohreh Interval history: Pt was s/e. His daughter was present. At first when I came to see him, he was being bathed. I returned in about 10 min and interviewed/examined. I updated all the questions from the pt and his daughter. He did not affirm N/V/D and said he felt as though his swelling was slightly improved again since the day before. Objective - Vital Signs Vital signs: Vital Signs Temp Pulse Resp BP Pulse Ox 06/28/18 06:49 99.1 F 71 16 138/83 97 06/28/18 06:03 99.5 F 103 16 133/80 95 06/27/18 23:30 98.5 F 89 17 103/61 96 06/27/18 20:26 98.6 F 97 18 119/79 95 06/27/18 16:45 98.8 F 95 18 96/70 96 06/27/18 10:33 98.7 F 111 18 147/77 94 Intake and Output 06/27/18 06/28/18 06/28/18 23:59 07:59 15:59 Intake Total 346 / 346 560 / 560 Output Total 2650 / 2650 350 / 350 Balance -2304 / -2304 210 / 210 Intake: IV Fluids 228 / 228 560 / 560 Heparin 25,000 UNIT/500 ML D5W 208 / 208 560 / 560 25,000 unit In 500 ml @ 14 UNIT /KG/HR 36.316 mls/hr IVC . [id number] JUAN DAVID Rx#:[id number] Rocephin 2,000 MG In Water for 20 / 20 inj. (sterile) 20 ML @ 600 mls/ hr IVP Q24H JUAN DAVID Rx#:[id number] Oral 118 / 118 0 / 0 Output: Catheter 2650 / 2650 350 / 350 Other: Meal Dinner Percent of Meal Consumed 0% - General Appearance Exam: Gen.: Vitals noted. No acute distress. AAOx3, laying supine in bed. HEENT: Normocephalic, atraumatic, MMM Cardiac: RRR, no murmur, +S1/S2, bilateral lower extremity edema about 1+ is improved with continued cracking of skin. Pulmonary: CTA bilaterally, no wheezes, rales or rhonchi, equal chest expansion, unlabored breathing Abdomen: soft, nontender, BS noted, no guarding, hepatomegaly. Distended and firm. Anasarca. Mildly improved Skin: warm and dry, Blistering lesions on bilateral LE. MSK: ROM not assessed, no joint swelling noted, gait no assessed while in bed. : Fung in place. scrotal swelling, 600 mL yellow urine Neuro: A&Ox3, moves all extremities, no focal deficits, sensation intact Psych: Appropriate mood and behavior, AOx3 - Lab 06/30/18 04:06 06/30/18 04:06 Most recent lab results Calcium 7.8 mg/dL (8.6-10.3) L 06/28/18 06:10 Consult Discharge Plan - Plan Referrals: NONE,PCP [Primary Care Provider] -
[2018-06-28] MEDS: Furosemide 40 MG/4 ML VIAL IVP SCH ×2 (09:28→15:59)
[2018-06-28] MEDS: *HR* Methadone 10 MG TABLET PO SCH ×2 (09:28→15:59)
[2018-06-28] MEDS: MICONAZOLE NITRATE 57 GM TUBE TP SCH ×2 (09:28→20:29)
[2018-06-28] MEDS: cloNIDine HCl 0.1 MG TABLET PO SCH ×3 (09:28→20:29)
[2018-06-28] MEDS: Metoprolol 100 MG TABLET PO SCH ×2 (09:28→20:29)
--- NOTE | 2018-06-28 10:27 | Oncology Inp Progress Note ---
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 Paracentesis fluid has been negative for malignancy showing atypical cells likely from inflammation. Liver biopsy has been postponed due to acute lower extremity thrombosis needing heparin. Patient continues to be in discomfort and pain lower ext due to clot (on heparin) as well as abdominal distention, fluid retention/liver metastasis. Diuresis being continued. Family would like to discuss home hospice and comfort care this visit due to recent worsening of chronic pain. He had declined in the past to go for rehabilitation and currently patient's family wants to take him homw with support. Discussed palliative care consultation with attending physi desiree. Patient's son and daughter were present this visit bed side to discuss his plan of care. Qualifiers: DVT location: upper extremity Affected thrombotic vein of extremity: axillary Chronicity: acute Laterality: right Qualified Code(s): I82.A11 - Acute embolism and thrombosis of right axillary vein Oncology: Subj Interval history: Pain in lower extremities and abdominal pain. He does not feel well rested. Family at bedside. - Constitutional General appearance: mild distress, obese - Head Head exam: Present: atraumatic, normal inspection - Eye Eye exam: Present: sclera anicteric - Respiratory Respiratory exam: Present: CTAB - Cardiovascular Cardiovascular exam: Present: +S1, +S2 - GI/Abdominal GI/Abdominal exam: Present: distended, firm - Extremities Exam Extremities exam: Present: pedal edema Additional comments: upper ext edema - Neurological Exam Neurological exam: Present: altered, CN II-XII intact, oriented X3, no focal deficits - Skin Skin exam: Present: erythema, warm Oncology: Obj Data - Labs CBC & Chem 7: 06/28/18 06:10 06/28/18 06:10 Consult Discharge Plan - Plan Referrals: NONE,PCP [Primary Care Provider] - Inpatient Charges Provider: Dr. Sean Licona Follow up - Inpatient: [id number]
[2018-06-28] MEDS: cefTRIAXone 2,000 MG in Water for inj. (sterile) 20 ML 20 ML IVP SCH (11:50)
--- NOTE | 2018-06-28 12:16 | Internal Med Progress Note ---
Hospitalist Progress Note - Encounter Date of Encounter: 06/28/18 Time of Encounter: 12:09 - Subjective Interval History: Patient lying on bed comfortably. Complaining of leg pain especially on the left side. Reviewed the lab with trending down white count and creatinine level. Blood culture with no growth . Denies fever chills nausea vomiting headache dizziness chest pain shortness of breath abdominal pain. - Exam Vitals: Temp Pulse Resp BP Pulse Ox 98.6 F 64 17 122/79 96 06/28/18 11:10 06/28/18 11:10 06/28/18 11:10 06/28/18 11:10 06/28/18 11:10 Exam: General appearance: No acute distress, A&O X 3. Morbid obese. Daughter at bedside Head exam: Atraumatic Eye exam: EOMI, PERRLA ENT exam: Moist oral mucosa Neck nontender, supple Respiratory exam: Clear to auscultation bilaterally Cardiovascular exam: Regular rate and rhythm, no systolic murmur Abdominal exam: Soft, nontender, nondistended, positive bowel sounds Extremities exam: Bilateral lower extremity +2 pedal edema. Left lower extremity erythema and tenderness-cellulitis. Calf tenderness positive Homans sign positive Superficial skin excoriation in the lower back /buttock Neurological exam: CN II-XII intact, no focal deficits. . - Assessment and Plan (1) Deep vein thrombosis (DVT) of proximal vein of left lower extremity Current Visit: Yes Status: Acute Assessment and Plan: Acute lower extremity deep venous thrombosis while on Xarelto was restarted for new onset upper extremity thrombosis2 weeks ago. 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 Continue heparin drip. Data Capture Specialist on board. History of carcinoid metastatic tumor with multiple liver lesions likely due to progressive metastases and plan for liver biopsy in patient if patient agrees. It was not done outpatient as patient was on Xarelto. (2) Cellulitis Current Visit: Yes Status: Acute Assessment and Plan: left lower extremity and also possible buttock due to superficial excoriation. Trending down white count. Continue Rocephin and monitor CBC. Methadone for pain control. Affected limb elevation. (3) Arrhythmia Current Visit: No Status: Suspected Assessment and Plan: New onset A. fib and last admission. Continue metoprolol and placed on cardiac monitoring. (4) Acute kidney injury superimposed on CKD Current Visit: Yes Status: Acute Assessment and Plan: Patient presenting with creatinine of 1.8 up from baseline of 1.4-1.5 in recent visits. Onboard occupational health and safety manager and is started IV Lasix and hold on lisinopril. Trending down creatinine level. Avoid nephrotoxic drug. Questionable nephrotic syndrome evaluation in process (5) Sepsis Current Visit: Yes Status: Acute Assessment and Plan: Most likely due to underlying cellulitis. On admission Patient is tachycardic in the 110 to 130s, has an elevated white blood cell count of 23.2 with raised lactic acidmeets sepsis criteria. Repeat lactic acid normal. Blood cultures with no growth yet. (6) Difficulty with insertion of urinary catheter Current Visit: Yes Status: Acute Assessment and Plan: Consulted urologists for successful for a catheter insertion. Fung was inserted for a strict I&O's monitoring. Will give avoid trial when appropriate. (7) Neuroendocrine carcinoma Current Visit: Yes Status: Acute Assessment and Plan: Progressive with multiple liver lesion most likely metastases and high tumor burden in the liver ascites renal insufficiency. Oncologists talked in detail with patient and he is willing for home hospice and comfort care therefore palliative care consulted. (8) Substance abuse Current Visit: No Status: Chronic Assessment and Plan: Continue methadone. (9) Goals of care, counseling/discussion Current Visit: Yes Status: Acute Assessment and Plan: Palliative care team consulted for code discuss on and do further comfort care and home hospice option along with Pain management - Time Spent with Patient Total time spent is greater than 50% in coordination of care (as documented) at patient's floor/unit and/or counseling patient: 25 - 35 minutes Plan of Care Discussed with: patient Internal Medicine: Result - Labs CBC & Chem 7: 06/28/18 06:10 06/28/18 06:10 Labs: Short CBC 06/28/18 Range/Units 06:10 WBC 15.8 H (4.3-11.1) K/mcL Hgb 9.9 L (12.9-16.9) g/dL Hct 30.3 L (37.5-50.1) % Plt Count 275 (140-400) K/mcL Neutrophils # 12.0 H (1.6-8.9) K/mcL BMP 06/28/18 06:10 Sodium 138 Potassium 3.3 L Chloride 102 Carbon Dioxide 25 BUN 24 H Creatinine 1.61 H Glucose 85 Calcium 7.8 L - ABG Interpretation ABG results: PT/INR, D-dimer PT 22.6 Seconds (9.4-12.1) H 06/26/18 06:50 Consult Discharge Plan - Plan Referrals: NONE,PCP [Primary Care Provider] - (1) Deep vein thrombosis (DVT) of proximal vein of left lower extremity Qualifiers: Chronicity: acute Qualified Code(s): I82.4Y2 - Acute embolism and thrombosis of unspecified deep veins of left proximal lower extremity (2) Cellulitis Qualifiers: Site of cellulitis: extremity Site of cellulitis of extremity: lower extremity Laterality: left Qualified Code(s): L03.116 - Cellulitis of left lower limb (3) Arrhythmia Qualifiers: Arrhythmia type: atrial fibrillation Atrial fibrillation type: unspecified Qualified Code(s): I48.91 - Unspecified atrial fibrillation (5) Sepsis Qualifiers: Sepsis type: sepsis due to unspecified organism Qualified Code(s): A41.9 - Sepsis, unspecified organism
[2018-06-29] MEDS: *HR* Methadone 10 MG TABLET PO SCH ×4 (00:01→23:42)
[2018-06-29 03:17] LABS: Basophils % 0.3 %; Calcium 7.5 mg/dL (8.6-10.3); Eosinophils # 0.4 K/mcL (0.0-0.6); Eosinophils % 2.9 %; Hemoglobin 10.6 g/dL (12.9-16.9); Immature Granulocytes % 6.2 % (0-4); Lymphocytes # 1.3 K/mcL (0.6-4.6); Lymphocytes % 8.7 %; Mean Corpuscular HGB Conc 32.1 g/dL (31.6-35.5); Mean Corpuscular Hemoglobin 26.2 pg (28.0-33.3); Mean Corpuscular Volume 81.5 fL (83.0-100.0); Mean Platelet Volume 11.7 fL (9.4-12.4); Monocytes % 7.2 %; Platelet Count 321 K/mcL (140-400); Potassium 3.1 mEq/L (3.5-5.1); Red Blood Count 4.05 M/mcL (4.19-5.50); Red Cell Distribution Width 15.3 % (11.5-14.5); Segmented Neutrophils % 74.7 %
[2018-06-29 03:30] LABS: Neutrophils # 10.8 K/mcL (1.6-8.9)
[2018-06-29 03:57] LABS: Platelet Estimate Normal (Normal)
[2018-06-29 08:45] LABS: ANA IgG by ELISA NONE DETECTED (None Detected)
[2018-06-29] MEDS ORDERED: *HR* FentaNYL (PF) 100 MCG/2 ML VIAL IVP ONE (10:13)
[2018-06-29] MEDS: Metoprolol 100 MG TABLET PO SCH ×2 (10:23→20:26)
[2018-06-29] MEDS: cloNIDine HCl 0.1 MG TABLET PO SCH ×3 (10:23→20:26)
[2018-06-29] MEDS: cefTRIAXone 2,000 MG in Water for inj. (sterile) 20 ML 20 ML IVP SCH (10:23)
[2018-06-29] MEDS: Furosemide 40 MG/4 ML VIAL IVP SCH ×2 (10:23→17:07)
--- NOTE | 2018-06-29 12:22 | Internal Med Progress Note ---
Hospitalist Progress Note - Encounter Date of Encounter: 06/29/18 Time of Encounter: 12:20 - Subjective Interval History: Patient lying on bed and complaining of severe leg pain. Methadone not helping and asking for more pain medicine. Family at bedside. Reviewed the lab with trending down white count and creatinine level. Blood culture with no growth . Denies fever chills nausea vomiting headache dizziness chest pain shortness of breath abdominal pain. - Exam Vitals: Temp Pulse Resp BP Pulse Ox 97.5 F L 98 18 133/68 98 06/29/18 11:22 06/29/18 11:22 06/29/18 11:22 06/29/18 11:22 06/29/18 11:22 Exam: General appearance: Mild to moderate distress due to pain. Morbid obese. Daughter at bedside Head exam: Atraumatic Eye exam: EOMI, PERRLA ENT exam: Moist oral mucosa Neck nontender, supple Respiratory exam: Clear to auscultation bilaterally Cardiovascular exam: Regular rate and rhythm, no systolic murmur Abdominal exam: Soft, nontender, nondistended, positive bowel sounds Extremities exam: Bilateral lower extremity +2 pedal edema. Left lower extremity erythema and tenderness-cellulitis. Calf tenderness positive Homans sign positive Superficial skin excoriation in the lower back /buttock Neurological exam: CN II-XII intact, no focal deficits. . - Assessment and Plan (1) Deep vein thrombosis (DVT) of proximal vein of left lower extremity Current Visit: Yes Status: Acute Assessment and Plan: Acute lower extremity deep venous thrombosis while on Xarelto was restarted for new onset upper extremity thrombosis2-3 weeks ago. 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 Continue heparin drip. Tire Mold Tester on board. History of carcinoid metastatic tumor with multiple liver lesions likely due to progressive metastases and plan for liver biopsy in patient if patient agrees. It was not done outpatient as patient was on Xarelto. (2) Cellulitis Current Visit: Yes Status: Acute Assessment and Plan: left lower extremity and also possible buttock due to superficial excoriation. Trending down white count. Continue Rocephin and monitor CBC. Methadone for pain control. Will restart short-acting when necessary opioids as well. Affected limb elevation. (3) Arrhythmia Current Visit: No Status: Suspected Assessment and Plan: New onset A. fib and last admission. Continue metoprolol and heparin drip placed on cardiac monitoring. (4) Acute kidney injury superimposed on CKD Current Visit: Yes Status: Acute Assessment and Plan: Patient presenting with creatinine of 1.8 up from baseline of 1.4-1.5 in recent visits. 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 Trending down creatinine level. Avoid nephrotoxic drug. Questionable nephrotic syndrome evaluation in process (5) Sepsis Current Visit: Yes Status: Acute Assessment and Plan: Most likely due to underlying cellulitis. On admission Patient is tachycardic in the 110 to 130s, has an elevated white blood cell count of 23.2 with raised lactic acidmeets sepsis criteria. Repeat lactic acid normal. Blood cultures with no growth yet. (6) Difficulty with insertion of urinary catheter Current Visit: Yes Status: Acute Assessment and Plan: Consulted urologists for successful for a catheter insertion. Fung was inserted for a strict I&O's monitoring. Will give avoid trial when appropriate. (7) Neuroendocrine carcinoma Current Visit: Yes Status: Acute Assessment and Plan: Progressive with multiple liver lesion most likely metastases and high tumor burden in the liver ascites renal insufficiency. Oncologists talked in detail with patient and he is willing for home hospice and comfort care therefore palliative care consulted. (8) Substance abuse Current Visit: No Status: Chronic Assessment and Plan: Continue methadone. (9) Goals of care, counseling/discussion Current Visit: Yes Status: Acute Assessment and Plan: Palliative care team consulted for code discussion. Patient and family want to do just comfort care and home hospice. Palliative care team is working on it and I discussed the plan with them as well. Patient needs better pain control therefore short-acting fentanyl started along with continuation of methadone. Plan for discharge in 1or 2 days once arrangement is made. - Time Spent with Patient Total time spent is greater than 50% in coordination of care (as documented) at patient's floor/unit and/or counseling patient: 25 - 35 minutes Plan of Care Discussed with: patient Internal Medicine: Result - Labs CBC & Chem 7: 06/29/18 02:49 06/29/18 02:49 Labs: Short CBC 06/29/18 Range/Units 02:49 WBC 14.5 H (4.3-11.1) K/mcL Hgb 10.6 L (12.9-16.9) g/dL Hct 33.0 L (37.5-50.1) % Plt Count 321 (140-400) K/mcL Neutrophils # 10.8 H (1.6-8.9) K/mcL BMP 06/29/18 02:49 Sodium 135 L Potassium 3.1 L Chloride 101 Carbon Dioxide 27 BUN 23 Creatinine 1.51 H Glucose 134 H Calcium 7.5 L - ABG Interpretation ABG results: PT/INR, D-dimer PT 22.6 Seconds (9.4-12.1) H 06/26/18 06:50 Consult Discharge Plan - Plan Referrals: NONE,PCP [Primary Care Provider] - (1) Deep vein thrombosis (DVT) of proximal vein of left lower extremity Qualifiers: Chronicity: acute Qualified Code(s): I82.4Y2 - Acute embolism and thrombosis of unspecified deep veins of left proximal lower extremity (2) Cellulitis Qualifiers: Site of cellulitis: extremity Site of cellulitis of extremity: lower extremity Laterality: left Qualified Code(s): L03.116 - Cellulitis of left lower limb (3) Arrhythmia Qualifiers: Arrhythmia type: atrial fibrillation Atrial fibrillation type: unspecified Qualified Code(s): I48.91 - Unspecified atrial fibrillation (5) Sepsis Qualifiers: Sepsis type: sepsis due to unspecified organism Qualified Code(s): A41.9 - Sepsis, unspecified organism
--- NOTE | 2018-06-29 13:51 | Palliative - Consult Note ---
Date of Encounter: 06/29/18 Time of Encounter: 11:00 - Assessment and Plan (1) Cancer associated pain Current Visit: Yes Status: Acute Assessment and plan: Patient complaints of severe pain to abdomen, lower legs and back. Patient with chronic pain issues and substance abuse from mid 2005. Currently taking Methadone. Current guidelines recommend continuing Methadone and adding short acting opioids for pain. Case discussed with Dr. Stewart. Agreement on adding Fentanyl IVP every 4 hrs. PRN. One time dose given stat and patient resting well at present. OARRS report reviewed and found acceptable. Family confirms dosage of Methadone. Total daily dose of Methadone = 30mg. 10mg every 8 hrs. Patient with liver impairment so dose of Fentanyl adjusted will reevaluate as needed and may consider Hydromorphone. Renal impairment improving. Case discussed with [facility] Pharmacist Nhung. (2) Goals of care, counseling/discussion Current Visit: Yes Status: Acute Assessment and plan: Conducted 45 minute discussion with Son Earnest and daughter Jeannine. Oncology met with them yesterday and discussed patients condition. I educated on hospice care versus home health and options for care. Patient currently in a less than desirable living condition at home with several women. Son Earnest states that his home is being renovated and at present is not suitable for living. Son is cleaning up the home so patient can live in it. I explained patient overall poor prognosis and need for possible comfort care if this is desired by patient. Rito naik Earnest desire sometime to think about goals and if hospice is appropriate choice at present. I explained cancer can be source of DVT development despite Xarelto. Explained how the liver functions and reasoning for anasarca and overall discomfort. Jeannine and Earnest will take the day to discuss desires and make arrangements for home transition as patient doesn't want ECF. Patient remains on Heparin and Methadone. Explained Methadone and the need to continue that regimen and treat acute pain with additional opioids for comfort. They verbalized understanding and we will continue to work the family for hopeful hospice transition home if possible. (3) Substance abuse Current Visit: Yes Status: Chronic Assessment and plan: Patient on Methadone for substance abuse (4) Anasarca Current Visit: Yes Status: Acute Assessment and plan: Patient is receiving heparin for DVTs. Last Paracentesis was on 06/23 to remove 2500 ml. (5) Acute deep vein thrombosis (DVT) of left lower extremity Current Visit: Yes Status: Acute Assessment and plan: Patient receiving Heparin IV infusion. Qualifiers: Affected thrombotic vein of extremity: unspecified vein of extremity Qualified Code(s): I82.402 - Acute embolism and thrombosis of unspecified deep veins of left lower extremity (6) Neuroendocrine carcinoma Current Visit: Yes Status: Acute Assessment and plan: Oncology following. (7) DVT of upper extremity (deep vein thrombosis) Current Visit: No Status: Acute Qualifiers: Qualified Code(s): I82.629 - Acute embolism and thrombosis of deep veins of u nspecified upper extremity Palliative-CN HPI - Data of Consult Patient: new to practice Consult date: 06/29/18 Requesting Physician: Soas Stewart MD Primary Care Provider: PCP NONE - Consult Narrative Palliative Care/Comfort Measures: Palliative care Reason for consult: Goals of Care History of present illness: Mr. 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 Patient at [facility] in December 2014 showed bilateral pleural based lung nodules, liver lesions and retroperitoneal lymph nodes concerning for metastatic disease. Patient had a liver biopsy that showed metastatic neuroendocrine cancer. Patient did not show-up for outpatient treatments and was hospitalized in May 2018 with anasarca, worsening pain and altered mental status. He was noted to have right upper extremity extensive DVT. He was discharged at that time on Xarelto. Patient was admitted to [facility] on 06/25/18 with left lower leg pain/tenderness, swelling, erythema, and warmth. On 06/25/18 venous doppler confirmed bilateral femoral vein thrombosis and right upper extremity DVT despite being on Xarelto. Nothing has relieved this pain including methadone the patient is on chronically for substance abuse. Upon this consult the patients daughter Jeannine is in the room and the patient is alert complaining of severe leg pain. Case discussed with Dr. Stewart and a one time dose of IV fentanyl was given for comfort. This palliative care consult is for goals of care discussion and pain management. CC: Vida Cummins MD - Time Spent with Patient Time: Total time spent is greater than 50% in coordination of care (as documented) at patient's floor/unit and/or counseling patient: Time with patient: 45 minutes Past Med Surg Social Fam HX - Past Medical History Source: patient, old records reviewed, obtained from family, nursing notes reviewed Medical history: cancer, hypertension Additional medical history: liver CA (previous colon CA). blood clot, on xarelto Psychiatric history: no psych history - Past Surgical History Surgical History: knee replacement Additional surgical history: bowel resection - Social History Smoking Status: Current every day smoker Packs per day: 1/2 Smokeless Tobacco Status: No Alcohol use: none Drug use: none Occupational status: unemployed Current living situation: Home Activity Level: Bed bound Recent Out of Country Travel Within the Last 8 Weeks: No Exposure or Possible Exposure to Illness During Travel: No - Family History Mother Living Status: Father Living Status: Medications and Allergies Amlodipine Besylate 10 mg PO DAILY 02/12/17 [History] Metoprolol Tartrate [Lopressor] 100 mg PO BID 02/12/17 [History] cloNIDine HCl [Clonidine HCl] 0.2 mg PO TID 02/12/17 [History] Ergocalciferol (VITAMIN D2) [Vitamin D2] 50,000 unit PO QWEEK 06/03/18 [History] Rivaroxaban [Xarelto] 20 mg PO 1700 #30 tablet 06/08/18 [Rx] Docusate [Colace] 100 mg PO BID 30 Days #60 capsule 06/12/18 [Rx] Methadone 10 mg PO Q8HR 30 Days #90 tablet 06/12/18 [Rx] Furosemide [Lasix] 40 mg PO DAILY #7 tablet 06/23/18 [Rx] Potassium Chloride 20 meq PO DAILY #7 tab.er.prt 06/23/18 [Rx] Allergy/AdvReac Type Severity Reaction Status Date / Time acetaminophen [From Vicodin] Allergy Rash Verified 06/12/18 15:52 hydrocodone [From Vicodin] Allergy Rash Verified 06/12/18 15:52 shellfish derived Allergy Anaphylaxis Verified 06/12/18 15:52 All systems: reviewed and no additional remarkable complaints except as stated (leg pain, buttock tenderness, scrotal edema) - Constitutional Constitutional ROS PAL: fatigue - Cardiovascular Cardiovascular ROS: pedal edema - Respiratory Respiratory: dyspnea on exertion - Gastrointestinal Gastrointestinal: abdominal pain - Genitourinary Genitourinary ROS male: urinary frequency - Musculoskeletal Musculoskeletal ROS IM: myalgias - Integumentary ROS Integumentary: erythema (buttocks) - Neurological Neurological ROS: weakness Palliative Care-Exam - Constitutional Vitals: Temp Pulse Resp BP Pulse Ox 97.5 F L 98 18 133/68 98 06/29/18 11:22 06/29/18 11:22 06/29/18 11:22 06/29/18 11:22 06/29/18 11:22 General appearance: Present: cooperative, mild distress Exam: c/o pain to left lower extremity - Head Head Exam: Present: atraumatic, normal inspection, normocephalic - Eye Eye exam: Present: PERRL - ENT ENT exam: Present: mucous membranes moist - Respiratory Respiratory exam: Present: decreased breath sounds - Expanded Respiratory Exam Location: decreased breath sounds: Left, Right, Lower - Cardiovascular Cardiovascular exam: Present: RRR, +S1, +S2 - Expanded Cardiovascular Exam Peripheral pulses: 1+: Femoral (L) PM, Femoral (R) PM, Posterior Tibialis (L), Posterior Tibialis (R), Dorsalis Pedis (L) PM, Dorsalis Pedis (R) PM, 2+: Carotid (L) PM, Carotid (R) PM, Radial (L), Radial (R) - GI/Abdominal Exam GI/Abdominal exam: Present: distended, tenderness additional comments: general anasarca - Catheter Type: Urethral (Fung) - Expanded Upper Extremities Exam Upper Arm exam: Present: full ROM Forearm wrist exam: Present: full ROM - Expanded Lower Extremities Exam Upper Leg exam: Present: full ROM Lower Leg exam: Present: full ROM - Neurological Exam Neurological exam: Present: alert - Expanded Neurological Exam Coma Scale Eye Opening: Spontaneous Coma Scale Motor Response: Obeys Commands Coma Scale Verbal Response: Confused Coma Scale Total: 14 - Psychiatric Psychiatric exam: Present: flat affect - Skin Skin exam: Present: erythema Internal Medicine - CN: Reslt - Labs CBC & Chem 7: 06/29/18 02:49 06/29/18 02:49 Labs: Short CBC 06/29/18 Range/Units 02:49 WBC 14.5 H (4.3-11.1) K/mcL Hgb 10.6 L (12.9-16.9) g/dL Hct 33.0 L (37.5-50.1) % Plt Count 321 (140-400) K/mcL Neutrophils # 10.8 H (1.6-8.9) K/mcL BMP 06/29/18 02:49 Sodium 135 L Potassium 3.1 L Chloride 101 Carbon Dioxide 27 BUN 23 Creatinine 1.51 H Glucose 134 H Calcium 7.5 L - ABG Interpretation ABG results: PT/INR, D-dimer PT 22.6 Seconds (9.4-12.1) H 06/26/18 06:50 Consult Discharge Plan - Plan Referrals: NONE,PCP [Primary Care Provider] - Palliative Quality Palliative Quality: Screen for Code Status: Yes, Screen for Goals of Care: Yes, Screen for Pain: Yes, If Pain Regimen Started, Initiate Bowel Regimen: No Code Status: 06/28/18 16:03 CODE [Resuscitation Status: Active] [RES] Routine Comment: Resuscitation Status: DNR-Comfort Care-Arrest 06/29/18 12:27 CODE [Resuscitation Status: Active] [RES] Routine Comment: Resuscitation Status: DNR-Comfort Care
[2018-06-29] MEDS: *HR* FentaNYL (PF) 100 MCG/2 ML VIAL IVP PRN ×2 (17:21→21:22)
[2018-06-29] MEDS: MICONAZOLE NITRATE 57 GM TUBE TP SCH ×3 (17:21→23:43)
[2018-06-29] MEDS: Heparin 25,000 UNIT/500 ML D5W 25,000 UNIT/500 ML BAG IVC SCH (21:23)
[2018-06-30 04:18] LABS: Hematocrit 31.4 % (37.5-50.1); Hemoglobin 10.4 g/dL (12.9-16.9); Mean Corpuscular HGB Conc 33.1 g/dL (31.6-35.5); Mean Corpuscular Hemoglobin 26.5 pg (28.0-33.3); Mean Corpuscular Volume 80.1 fL (83.0-100.0); Mean Platelet Volume 12.1 fL (9.4-12.4); Platelet Count 228 K/mcL (140-400); Red Blood Count 3.92 M/mcL (4.19-5.50); Red Cell Distribution Width 15.3 % (11.5-14.5)
[2018-06-30 04:35] LABS: Eosinophils # 0.4 K/mcL (0.0-0.6); Lymphocytes # 1.1 K/mcL (0.6-4.6); Monocytes # 1.5 K/mcL (0.0-1.3); Neutrophils # 15.4 K/mcL (1.6-8.9)
[2018-06-30 04:45] LABS: BUN/Creatinine Ratio 17 (6-26); Blood Urea Nitrogen 23 mg/dL (8-23); Calcium 7.5 mg/dL (8.6-10.3); Carbon Dioxide 26 mEq/L (23-29); Chloride 101 mEq/L (98-107); Glucose 114 mg/dL (70-105); Osmolality,Calculated 289 (280-300); Potassium 4.1 mEq/L (3.5-5.1); Sodium 137 mEq/L (136-145); eGFR For Non-African Americans 51 (> 60)
[2018-06-30] MEDS: *HR* FentaNYL (PF) 100 MCG/2 ML VIAL IVP PRN ×3 (05:14→20:39)
[2018-06-30] MEDS: Heparin 25,000 UNIT/500 ML D5W 25,000 UNIT/500 ML BAG IVC SCH ×2 (08:49→19:28)
[2018-06-30] MEDS: MICONAZOLE NITRATE 57 GM TUBE TP SCH ×2 (08:50→22:49)
[2018-06-30] MEDS: Metoprolol 100 MG TABLET PO SCH ×2 (08:50→20:25)
[2018-06-30] MEDS: Furosemide 40 MG/4 ML VIAL IVP SCH ×2 (08:50→15:57)
[2018-06-30] MEDS: cloNIDine HCl 0.1 MG TABLET PO SCH ×3 (08:50→20:24)
[2018-06-30] MEDS: *HR* Methadone 10 MG TABLET PO SCH ×3 (08:50→23:32)
--- NOTE | 2018-06-30 09:36 | Palliative - Consult Note ---
Addendum entered and electronically signed by Malini Smith CNP 06/30/18 15:00: Met with patient's son re: f/u meeting from yesterday. Son did have patient's daughter, Jeannine on speakerphone. They would like to transition to inpatient hospice tomorrow, with the goal of getting him home. Son has to meet with pt civil attorney this evening, so not available to meet with hospice today. Will f/u in am. Referral called to [facility]. Notified Dr. Stewart. Original Note: Date of Encounter: 06/30/18 Time of Encounter: 09:00 - Assessment and Plan (1) Edema Current Visit: No Status: Acute Assessment and plan: +1 BLE edema with weeping. Per reports of Primary RN this is improving. Pt taking Lasix BID. Primary care team to manage. Qualifiers: Edema type: generalized Qualified Code(s): R60.1 - Generalized edema (2) Acute kidney injury Current Visit: Yes Status: Acute Assessment and plan: Creat improving, continue to monitor. (3) DVT of upper extremity (deep vein thrombosis) Current Visit: No Status: Acute Assessment and plan: Right arm with slight nonpitting edema. Pt decribes some pain, but able to move spontaneously. Heparin gtt in place. Qualifiers: Qualified Code(s): I82.629 - Acute embolism and thrombosis of deep veins of unspecified upper extremity (4) DVT (deep venous thrombosis) Current Visit: No Status: Acute Assessment and plan: Extreme pain to BLE left more than right. Heparin Gtt in place. Fentanyl IVP for pain management. Qualifiers: DVT location: upper extremity Affected thrombotic vein of extremity: axill hafsa Chronicity: acute Laterality: right Qualified Code(s): I82.A11 - Acute embolism and thrombosis of right axillary vein (5) Goals of care, counseling/discussion Current Visit: Yes Status: Acute Assessment and plan: Pt continues to want DNRCC with goals of keeping him out of pain and comfortable. Son(Earnest) to come in later today. Palliative care team to follow up with plan of care for discharge. Suspect patient to go home with hospice, but home life is complicated. Pt has 14 cats at home and currently has women in his house that were recently evicted. Follow up to be done with Earnest about status of the home. (6) Weakness Current Visit: No Status: Acute Assessment and plan: Pt has generalized weakness in bed. BLE in too much pain to move. (7) Pain Current Visit: Yes Status: Acute Assessment and plan: Patient having shooting burning pain to BLE, Fentanyl IVP pain. Fentanyl used x3 doses in the past 24 hours. Sheduled methadone TID as well. Gabapentin HS added for adjunct therapy for pain suppression in BLE. Pt with buttock pain r/t wound. Pt right upper extremity dull sore pain. Palliative-CN HPI - Data of Consult Requesting Physician: Vida Cummins MD Primary Care Provider: PCP NONE - Consult Narrative Palliative Care/Comfort Measures: Palliative care History of present illness: Mr. Todd is a 67 year old male is eating breakfast lying in bed. Patient is AxOx4 and able to have full conversations. Patient in pain attempting to not move and holding breath to help with pain. Cheri RN notified. 3 doses of IVP Fentanyl given for pain in the last 24 hours. Patient would like a dose of this before his morning bath. Pt adjitated related to pain in BLE expressing the left is worse than the right. Pt complains of pain to his buttocks as well. Pt states that his son Earnest steward will be in later today. CC: Vida Cummins MD - Time Spent with Patient Time: Total time spent is greater than 50% in coordination of care (as documented) at patient's floor/unit and/or counseling patient: Time with patient: 20 minutes Past Med Surg Social Fam HX - Past Medical History Medical history: cancer, hypertension Additional medical history: liver CA (previous colon CA). blood clot, on xarelto Psychiatric history: no psych history - Past Surgical History Surgical History: knee replacement Additional surgical history: bowel resection - Social History Smoking Status: Current every day smoker Packs per day: 1/2 Smokeless Tobacco Status: No Alcohol use: none Drug use: none - Family History Mother Living Status: Father Living Status: Medications and Allergies Amlodipine Besylate 10 mg PO DAILY 02/12/17 [History] Metoprolol Tartrate [Lopressor] 100 mg PO BID 02/12/17 [History] cloNIDine HCl [Clonidine HCl] 0.2 mg PO TID 02/12/17 [History] Ergocalciferol (VITAMIN D2) [Vitamin D2] 50,000 unit PO QWEEK 06/03/18 [History] Rivaroxaban [Xarelto] 20 mg PO 1700 #30 tablet 06/08/18 [Rx] Docusate [Colace] 100 mg PO BID 30 Days #60 capsule 06/12/18 [Rx] Methadone 10 mg PO Q8HR 30 Days #90 tablet 06/12/18 [Rx] Furosemide [Lasix] 40 mg PO DAILY #7 tablet 06/23/18 [Rx] Potassium Chloride 20 meq PO DAILY #7 tab.er.prt 06/23/18 [Rx] Allergy/AdvReac Type Severity Reaction Status Date / Time acetaminophen [From Vicodin] Allergy Rash Verified 06/12/18 15:52 hydrocodone [From Vicodin] Allergy Rash Verified 06/12/18 15:52 shellfish derived Allergy Anaphylaxis Verified 06/12/18 15:52 - Constitutional Constitutional ROS PAL: no decreased appetite, no anorexia, no chills, no fatigue, no fever(s) - Cardiovascular Cardiovascular ROS: no chest pain, no chest pain at rest, no chest pain with activity, no diaphoresis, no dyspnea on exertion - Respiratory Respiratory: no cough, no dyspnea, no dyspnea on exertion, no wheezing - Gastrointestinal Gastrointestinal: no abdominal pain, no diarrhea - Musculoskeletal Musculoskeletal ROS IM: radiating pain into limb (BLE L>R) - Integumentary ROS Integumentary: wounds (Buttocks) Palliative Care-Exam - Constitutional Vitals: Temp Pulse Resp BP Pulse Ox 98.0 F 98 18 130/85 97 06/30/18 07:25 06/30/18 07:25 06/30/18 07:25 06/30/18 07:25 06/30/18 07:25 General appearance: Present: cooperative, mild distress, obese. Absent: thin - Head Head Exam: Present: atraumatic, normal inspection - Eye Eye exam: Present: normal appearance, PERRL. Absent: nystagmus Pupils: Present: PERRL - ENT ENT exam: Present: mucous membranes moist, normal exam, normal external ear exam - Expanded ENT Exam Mouth Exam: Present: moist, normal external inspection, tongue normal - Neck Neck exam: Present: full ROM Additional comments: JVD present - Cardiovascular Cardiovascular exam: Present: irregular rhythm, JVD, +S1, +S2. Absent: systolic murmur, tachycardia Additional comments: Unable to assess BLE pulses d/t pain. - Expanded Cardiovascular Exam Peripheral pulses: 1+: Radial (L), Radial (R) - Expanded GI/Abdominal Exam GI/Abdominal exam: Present: ascites - Rectal Rectal Exam: Present: deferred - Catheter Type: Coude Additional comments: Coude Catheter with straw colored urine - Extremities Exam Extremities exam: Present: calf tenderness, pedal edema (+1 BLE), tenderness. Absent: normal inspection - Expanded Upper Extremities Exam Upper Arm exam: Present: full ROM, swelling (Right upper arm with +1 edema). Absent: erythema - Expanded Lower Extremities Exam Lower Leg exam: Present: erythema (Weeping to left leg, scant serous fluid ), s welling, tenderness. Absent: normal inspection - Neurological Exam Neurological exam: Present: alert, oriented X3, strengths equal and symetr throughout. Absent: altered - Expanded Neurological Exam Patient oriented to: Present: person, place, time Sensory exam: lower extremity light touch: Abnormal Left, Abnormal Right (Extreme pain sensation), lower extremity temperature: Abnormal Left, Abnormal Right (Warm) Coma Scale Eye Opening: Spontaneous Coma Scale Motor Response: Obeys Commands Coma Scale Verbal Response: Oriented Coma Scale Total: 15 - Psychiatric Psychiatric exam: Present: agitated. Absent: anxious, normal affect, normal mood - Skin Skin exam: Present: dry, pallor (Sallow ), warm Internal Medicine - CN: Reslt - Labs CBC & Chem 7: 06/30/18 04:06 06/30/18 04:06 Labs: Short CBC 06/30/18 Range/Units 04:06 WBC 18.3 H (4.3-11.1) K/mcL Hgb 10.4 L (12.9-16.9) g/dL Hct 31.4 L (37.5-50.1) % Plt Count 228 (140-400) K/mcL Neutrophils # 15.4 H (1.6-8.9) K/mcL BMP 06/30/18 04:06 Sodium 137 Potassium 4.1 Chloride 101 Carbon Dioxide 26 BUN 23 Creatinine 1.38 H Glucose 114 H Calcium 7.5 L - ABG Interpretation ABG results: PT/INR, D-dimer PT 22.6 Seconds (9.4-12.1) H 06/26/18 06:50 Consult Discharge Plan - Plan Referrals: NONE,PCP [Primary Care Provider] - Palliative Quality Palliative Quality: Screen for Code Status: Yes, Screen for Goals of Care: Yes, Screen for Pain: Yes, If Pain Regimen Started, Initiate Bowel Regimen: Yes, Screen for Nausea/Vomitting: Yes Code Status: 06/28/18 16:03 CODE [Resuscitation Status: Active] [RES] Routine Comment: Resuscitation Status: DNR-Comfort Care-Arrest 06/29/18 12:27 CODE [Resuscitation Status: Active] [RES] Routine Comment: Resuscitation Status: DNR-Comfort Care
[2018-06-30] MEDS: cefTRIAXone 2,000 MG in Water for inj. (sterile) 20 ML 20 ML IVP SCH (12:12)
--- NOTE | 2018-06-30 15:50 | Internal Med Progress Note ---
Hospitalist Progress Note - Encounter Date of Encounter: 06/30/18 Time of Encounter: 15:47 - Subjective Interval History: Patient lying on bed and complaining of pain but better controlled. Patient is sleepy but arousable. Daughter at bedside. Reviewed the lab with trending up white count but trending down creatinine level. Blood culture with no growth . Denies fever chills vomiting headache dizziness chest pain shortness of breath abdominal pain. - Exam Vitals: Temp Pulse Resp BP Pulse Ox 97.2 F L 86 18 120/80 96 06/30/18 15:22 06/30/18 15:22 06/30/18 15:22 06/30/18 15:22 06/30/18 15:22 Exam: General appearance: No acute distress. Sleepy but arousable. Morbid obese. Daughter at bedside Head exam: Atraumatic Eye exam: EOMI, PERRLA ENT exam: Moist oral mucosa Neck nontender, supple Respiratory exam: Clear to auscultation bilaterally Cardiovascular exam: Regular rate and rhythm, no systolic murmur Abdominal exam: Soft, nontender, nondistended, positive bowel sounds Extremities exam: Bilateral lower extremity +2 pedal edema. Left lower extremity erythema and tenderness-cellulitis. Calf tenderness positive Homans sign positive Superficial skin excoriation in the lower back /buttock Neurological exam: CN II-XII intact, no focal deficits. . - Assessment and Plan (1) Deep vein thrombosis (DVT) of proximal vein of left lower extremity Current Visit: Yes Status: Acute Assessment and Plan: Acute lower extremity deep venous thrombosis while on Xarelto was restarted for new onset upper extremity thrombosis2-3 weeks ago. 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 Continue heparin drip for now. Solutions Architect Consultant on board. 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 (2) Cellulitis Current Visit: Yes Status: Acute Assessment and Plan: left lower extremity and also possible buttock due to superficial excoriation. Continue Rocephin and monitor CBC. Methadone for pain control. Started short- acting opioids as well. Affected limb elevation. (3) Arrhythmia Current Visit: No Status: Suspected Assessment and Plan: New onset A. fib and last admission. Continue metoprolol and heparin drip placed on cardiac monitoring. (4) Acute kidney injury superimposed on CKD Current Visit: Yes Status: Acute Assessment and Plan: Patient presenting with creatinine of 1.8 up from baseline of 1.4-1.5 in recent visits. Onboard bunch maker hand and is started IV Lasix and hold on lisinopril. Trending down creatinine level. Avoid nephrotoxic drug. (5) Sepsis Current Visit: Yes Status: Acute Assessment and Plan: Most likely due to underlying cellulitis. On admission Patient is tachycardic in the 110 to 130s, has an elevated white blood cell count of 23.2 with raised lactic acidmeets sepsis criteria. Repeat lactic acid normal. Blood cultures with no growth yet. (6) Difficulty with insertion of urinary catheter Current Visit: Yes Status: Acute Assessment and Plan: Consulted urologists for successful for a catheter insertion. Fung was inserted for a strict I&O's monitoring. Will give avoid trial when appropriate. (7) Neuroendocrine carcinoma Current Visit: Yes Status: Acute Assessment and Plan: Progressive with multiple liver lesion most likely metastases and high tumor burden in the liver ascites renal insufficiency. Oncologists talked in detail with patient and he is willing for home hospice and comfort care therefore palliative care consulted. (8) Substance abuse Current Visit: Yes Status: Chronic Assessment and Plan: Continue methadone. (9) Goals of care, counseling/discussion Current Visit: Yes Status: Acute Assessment and Plan: Palliative care team on board and appreciated their input. Patient and family want to do just comfort care and home hospice. Palliative care team is working on it and possible discharge tomorrow. Continue pain management as per palliative care advice. Patient appear more comfortable today. - Time Spent with Patient Total time spent is greater than 50% in coordination of care (as documented) at patient's floor/unit and/or counseling patient: 25 - 35 minutes (Discuss plan of care with patient, family, consultants) Internal Medicine: Result - Labs CBC & Chem 7: 06/30/18 04:06 06/30/18 04:06 Labs: Short CBC 06/30/18 Range/Units 04:06 WBC 18.3 H (4.3-11.1) K/mcL Hgb 10.4 L (12.9-16.9) g/dL Hct 31.4 L (37.5-50.1) % Plt Count 228 (140-400) K/mcL Neutrophils # 15.4 H (1.6-8.9) K/mcL BMP 06/30/18 04:06 Sodium 137 Potassium 4.1 Chloride 101 Carbon Dioxide 26 BUN 23 Creatinine 1.38 H Glucose 114 H Calcium 7.5 L - ABG Interpretation ABG results: PT/INR, D-dimer PT 22.6 Seconds (9.4-12.1) H 06/26/18 06:50 Consult Discharge Plan - Plan Referrals: NONE,PCP [Primary Care Provider] - (1) Deep vein thrombosis (DVT) of proximal vein of left lower extremity Qualifiers: Chronicity: acute Qualified Code(s): I82.4Y2 - Acute embolism and thrombosis of unspecified deep veins of left proximal lower extremity (2) Cellulitis Qualifiers: Site of cellulitis: extremity Site of cellulitis of extremity: lower extremity Laterality: left Qualified Code(s): L03.116 - Cellulitis of left lower limb (3) Arrhythmia Qualifiers: Arrhythmia type: atrial fibrillation Atrial fibrillation type: unspecified Qualified Code(s): I48.91 - Unspecified atrial fibrillation (5) Sepsis Qualifiers: Sepsis type: sepsis due to unspecified organism Qualified Code(s): A41.9 - Sepsis, unspecified organism
[2018-07-01] MEDS: *HR* FentaNYL (PF) 100 MCG/2 ML VIAL IVP PRN (02:39)
[2018-07-01] MEDS: Heparin 25,000 UNIT/500 ML D5W 25,000 UNIT/500 ML BAG IVC SCH (07:00)
[2018-07-01] MEDS: Furosemide 40 MG/4 ML VIAL IVP SCH (07:41)
[2018-07-01] MEDS: *HR* Methadone 10 MG TABLET PO SCH (07:41)
[2018-07-01] MEDS: cloNIDine HCl 0.1 MG TABLET PO SCH (07:41)
[2018-07-01] MEDS: Metoprolol 100 MG TABLET PO SCH (07:41)
[2018-07-01] MEDS: MICONAZOLE NITRATE 57 GM TUBE TP SCH (07:42)
--- NOTE | 2018-07-01 07:59 | Discharge Summary ---
Orders not resulted at time of discharge: Pending orders 07/01/18 14:30 Heparin anti-factor XA UFH [COAG] Timed Date of Encounter: 07/01/18 Time of Encounter: 08:00 - Discharge Diagnosis (1) Neuroendocrine carcinoma Priority: Primary Status: Acute Assessment and Plan: Mr. 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 Patient at [facility] in December 2014 showed bilateral pleural based lung nodules, liver lesions and retroperitoneal lymph nodes concerning for metastatic disease. Patient had a liver biopsy that showed metastatic neuroendocrine cancer. Patient did not show-up for outpatient treatments and was hospitalized in May 2018 with anasarca, worsening pain and altered mental status. He was noted to have right upper extremity extensive DVT. He was discharged at that time on Xarelto. Patient was admitted to [facility] on 06/25/18 with left lower leg pain/tenderness, swelling, erythema, and warmth. On 06/25/18 venous doppler confirmed bilateral femoral vein thrombosis and right upper extremity DVT despite being on Xarelto. Nothing has relieved this pain including methadone the patient is on chronically for substance abuse. Upon this consult the patients daughter Jeannine is in the room and the patient is alert complaining of severe leg pain. He was assessed with recurrent DVT, sepsis due to cellulitis, TRISTA on CKD and started on anticoagulation and antibiotics. He was seen by multiple specialties including urology, oncology and nephrology for his multiple comorbidities. Due to his poor prognosis he was seen by palliative care and will be discharged to inpatient hospice. 35minutes was spent discharging this patient (2) Arrhythmia Priority: Primary Status: Suspected Assessment and Plan: New onset A. fib and last admission. Continue metoprolol and heparin drip placed on cardiac monitoring. Qualifiers: Arrhythmia type: atrial fibrillation Atrial fibrillation type: unspecified Qualified Code(s): I48.91 - Unspecified atrial fibrillation (3) Acute kidney injury superimposed on CKD Priority: Primary Status: Acute (4) Substance abuse Priority: Primary Status: Chronic (5) Deep vein thrombosis (DVT) of proximal vein of left lower extremity Priority: Primary Status: Acute Qualifiers: Chronicity: acute Qualified Code(s): I82.4Y2 - Acute embolism and thrombosis of unspecified deep veins of left proximal lower extremity (6) Sepsis Priority: Primary Status: Acute Qualifiers: Sepsis type: sepsis due to unspecified organism Qualified Code(s): A41.9 - Sepsis, unspecified organism (7) Difficulty with insertion of urinary catheter Priority: Primary Status: Acute (8) Cellulitis Priority: Primary Status: Acute Qualifiers: Site of cellulitis: extremity Site of cellulitis of extremity: lower extremity Laterality: left Qualified Code(s): L03.116 - Cellulitis of left lower limb (9) Goals of care, counseling/discussion Priority: Primary Status: Acute Hospital course: Mr. Todd is a 67 year old male - Time Spent with Patient Total time spent providing and/or coordinating discharge services: - Discharge Medications Home Medications: Amlodipine Besylate 10 mg PO DAILY 02/12/17 [History] Metoprolol Tartrate [Lopressor] 100 mg PO BID 02/12/17 [History] cloNIDine HCl [Clonidine HCl] 0.2 mg PO TID 02/12/17 [History] Ergocalciferol (VITAMIN D2) [Vitamin D2] 50,000 unit PO QWEEK 06/03/18 [History] Rivaroxaban [Xarelto] 20 mg PO 1700 #30 tablet 06/08/18 [Rx] Docusate [Colace] 100 mg PO BID 30 Days #60 capsule 06/12/18 [Rx] Methadone 10 mg PO Q8HR 30 Days #90 tablet 06/12/18 [Rx] Furosemide [Lasix] 40 mg PO DAILY #7 tablet 06/23/18 [Rx] Potassium Chloride 20 meq PO DAILY #7 tab.er.prt 06/23/18 [Rx] Allergies/Adverse Reactions: Allergy/AdvReac Type Severity Reaction Status Date / Time acetaminophen [From Vicodin] Allergy Rash Verified 06/12/18 15:52 hydrocodone [From Vicodin] Allergy Rash Verified 06/12/18 15:52 shellfish derived Allergy Anaphylaxis Verified 06/12/18 15:52 Date of admission: 06/27/18 13:16 Primary care physician: PCP NONE Consults: 06/25/18 18:06 Consult to Invasive Line Access Team [CONS] Routine Reason for Consult: limited vascular access Line Type: EPIV 06/25/18 23:53 Consult to Electronic Warfare Technician [CONS] Routine Reason for SW Consult: Possible HH referral upon discharge. 06/26/18 03:08 Consult to Nephrology [CONS] Routine Consulting Provider: Kidney Rola/SIENNA/CHASE/GABRIEL Reason for Consult: acute on chronic kidney injury management Time Notified: 03:08 Call Completed: No 06/26/18 07:09 Consult to Urology [CONS] Routine Consulting Provider: Urology Rola Reason for Consult: Scrotal swelling, needs shields placed. Difficulty with placement Call Completed: No 06/26/18 15:13 Consult to Wound Care [CONS] Routine Reason for Consult: open excoriatoin areas to buttocks Call Completed: No 06/26/18 16:31 Consult to Oncology Hematology [CONS] Routine Consulting Provider: Sendy Martinez Reason for Consult: New DVT, neuroendocrine tumor Call Completed: Yes 06/28/18 12:13 Consult to Palliative Care [CONS] Routine Comment: Consulting Provider: Palliative Care [facility] Reason for Consult: That want to discuss CODE STATUS and comfort care Call Completed: Yes - Constitutional Vitals: Temp Pulse Resp BP Pulse Ox 98.3 F 91 18 154/95 95 07/01/18 06:51 07/01/18 06:51 07/01/18 06:51 07/01/18 06:51 07/01/18 06:51 Exam: General appearance: No acute distress. Sleepy but arousable. Morbid obese. Daughter at bedside Head exam: Atraumatic Eye exam: EOMI, PERRLA ENT exam: Moist oral mucosa Neck nontender, supple Respiratory exam: Clear to auscultation bilaterally Cardiovascular exam: Regular rate and rhythm, no systolic murmur Abdominal exam: Soft, nontender, nondistended, positive bowel sounds Extremities exam: Bilateral lower extremity +2 pedal edema. Left lower extremity erythema and tenderness-cellulitis. Calf tenderness positive Homans sign positive Superficial skin excoriation in the lower back /buttock Neurological exam: CN II-XII intact, no focal deficits. . - Patient Status Disposition: Hospice - Medical Facility - Discharge Instructions Follow Up With: NONE,PCP [Primary Care Provider] - (Patient going to [facility] )
[2018-07-01] MEDS ORDERED: *HR* OxyCODONE Immed Rel 5 MG TABLET PO PRN (10:45)
[2018-07-01 10:48] VITALS: BP 115/75
--- NOTE | 2018-07-01 10:48 | Palliative Progress Note ---
Date of Encounter: 07/01/18 Time of Encounter: 10:40 - Assessment and plan (1) Cancer associated pain Current Visit: Yes Status: Acute Assessment and plan: Methadone remains at 10mg every 8 hours. Will transition IV Fentanyl to IR Oxycodone and see if he can tolerate. He does seem to describe neuropathic pain of lower extremities, will add Gabapentin at hs for adjuvant therapy. Monitor and adjust as needed. (2) Acute kidney injury Current Visit: Yes Status: Acute (3) DVT of upper extremity (deep vein thrombosis) Current Visit: No Status: Acute Qualifiers: Qualified Code(s): I82.629 - Acute embolism and thrombosis of deep veins of unspecified upper extremity (4) DVT (deep venous thrombosis) Current Visit: No Status: Acute Assessment and plan: Remains on IV heparin - if transitions to hospice care. Will D/C and begin Lovenox as bridge to Warfarin. Qualifiers: DVT location: upper extremity Affected thrombotic vein of extremity: axillary Chronicity: acute Laterality: right Qualified Code(s): I82.A11 - Acute embolism and thrombosis of right axillary vein (5) Goals of care, counseling/discussion Current Visit: Yes Status: Acute Assessment and plan: Will be meeting with son/daughter around 1200 to discuss inpatient hospice transfer. - Time Spent With Patient Total time spent is greater than 50% in coordination of care (as documented) at patient's floor/unit and/or counseling patient: 25 - 35 minutes - Subjective Interval history: Patient awake and alert, oriented to name and place, but does make inappropriate statements at times. C/o constipation this am. States pain is "better", states about 7/10 but he is tolerating. Daughter is at bedside. - Constitutional Vitals: Abnormal lab results WBC 18.3 K/mcL (4.3-11.1) H 06/30/18 04:06 RBC 3.92 M/mcL (4.19-5.50) L 06/30/18 04:06 Hgb 10.4 g/dL (12.9-16.9) L 06/30/18 04:06 Hct 31.4 % (37.5-50.1) L 06/30/18 04:06 MCV 80.1 fL (83.0-100.0) L 06/30/18 04:06 MCH 26.5 pg (28.0-33.3) L 06/30/18 04:06 RDW 15.3 % (11.5-14.5) H 06/30/18 04:06 Immature Gran % 6.2 % (0-4) H 06/29/18 02:49 Neutrophils # 15.4 K/mcL (1.6-8.9) H 06/30/18 04:06 Monocytes # 1.5 K/mcL (0.0-1.3) H 06/30/18 04:06 PT 22.6 Seconds (9.4-12.1) H 06/26/18 06:50 Creatinine 1.38 mg/dL (0.70-1.30) H 06/30/18 04:06 Est GFR (Non-Af Amer) 51 (> 60) L 06/30/18 04:06 Glucose 114 mg/dL (70-105) H 06/30/18 04:06 Calcium 7.5 mg/dL (8.6-10.3) L 06/30/18 04:06 Total Bilirubin 1.7 mg/dL (0.3-1.0) H 06/25/18 17:48 Direct Bilirubin 0.8 mg/dL (0.0-0.2) H 06/25/18 17:48 Alkaline Phosphatase 266 Units/L (34-104) H 06/25/18 17:48 B-Natriuretic Peptide 679 pg/mL (Less than 100) H 06/26/18 00:02 Albumin 2.6 g/dL (3.5-5.7) L 06/25/18 17:48 Globulin 4.1 g/dL (2.4-3.5) H 06/25/18 17:48 Albumin/Globulin Ratio 0.6 (1.1-2.2) L 06/25/18 17:48 - Respiratory Respiratory exam: Present: decreased breath sounds - Cardiovascular Cardiovascular exam: Present: +S1, +S2 - GI/Abdominal GI/Abdominal exam: Present: normal bowel sounds, soft - Extremities Exam Additional comments: Lower extremities with brownish discoloration, Skin dry and cracked. - Neurological Exam Neurological exam: Present: alert Additional comments: Follows commands with upper extremities. Assessment of lower extremities causes him discomfort, so he refuses. - Skin Skin exam: Present: dry, pallor, warm Palliative Quality Palliative Quality: Screen for Code Status: Yes, Screen for Goals of Care: Yes, Screen for Pain: Yes, If Pain Regimen Started, Initiate Bowel Regimen: Yes, Screen for Nausea/Vomitting: Yes Code Status: 06/28/18 16:03 CODE [Resuscitation Status: Active] [RES] Routine Comment: Resuscitation Status: DNR-Comfort Care-Arrest 06/29/18 12:27 CODE [Resuscitation Status: Active] [RES] Routine Comment: Resuscitation Status: DNR-Comfort Care - Labs CBC & Chem 7: 06/30/18 04:06 06/30/18 04:06 Labs: Laboratory Results - last 24 hr 06/30/18 14:30 Heparin Anti-Xa, Unfract 0.38 - ABG Interpretation ABG results: PT/INR, D-dimer PT 22.6 Seconds (9.4-12.1) H 06/26/18 06:50 Consult Discharge Plan - Plan Referrals: NONE,PCP [Primary Care Provider] -
[2018-07-01] MEDS: cefTRIAXone 2,000 MG in Water for inj. (sterile) 20 ML 20 ML IVP SCH (11:05)
[2018-07-01] MEDS: Bisacodyl 10 MG RECTAL SUPPOSITORY RC ONE ×2 (11:23→11:44)
--- NOTE | 2018-07-01 12:50 | Nephrology Progress Note ---
Date of Encounter: 07/01/18 Time of Encounter: 12:50 - Assessment and Plan (1) Neuroendocrine carcinoma Current Visit: Yes Status: Acute (2) Acute kidney injury superimposed on CKD Current Visit: Yes Status: Acute (3) Hypokalemia Current Visit: No Status: Acute (4) Anasarca Current Visit: Yes Status: Acute (5) Cellulitis Current Visit: Yes Status: Acute Qualifiers: Site of cellulitis: extremity Site of cellulitis of extremity: lower extremity Laterality: left Qualified Code(s): L03.116 - Cellulitis of left lower limb Subjective Principal diagnosis: Anasarca, zohreh Objective - Vital Signs Vital signs: Vital Signs Temp Pulse Resp BP Pulse Ox 07/01/18 10:46 97.3 F L 82 17 115/75 98 07/01/18 06:51 98.3 F 91 18 154/95 95 07/01/18 05:08 98.2 F 87 16 153/92 96 07/01/18 00:08 98.0 F 76 15 133/72 97 06/30/18 19:46 98.0 F 84 16 120/78 96 06/30/18 15:22 97.2 F L 86 18 120/80 96 Intake and Output 06/30/18 07/01/18 07/01/18 23:59 07:59 15:59 Intake Total 208 / 208 500 / 500 Output Total 900 / 900 1600 / 1600 Balance -692 / -692 500 / 500 -1600 / -1600 Intake: IV Fluids 208 / 208 500 / 500 Heparin 25,000 UNIT/500 ML D5W 208 / 208 500 / 500 25,000 unit In 500 ml @ 14 UNIT /KG/HR 36.316 mls/hr IVC . [id number] [facility] Rx#:[id number] Output: Urine 900 / 900 Catheter 1600 / 1600 Other: Stool Size Large Stool Consistency loose Stool Color Brown # Bowel Movements 1 - Lab 06/30/18 04:06 06/30/18 04:06 Most recent lab results Calcium 7.5 mg/dL (8.6-10.3) L 06/30/18 04:06 Consult Discharge Plan - Plan Referrals: NONE,PCP [Primary Care Provider] -
[2018-07-01] MEDS ORDERED: Sennosides 8.6 MG TABLET PO SCH (21:00)
[2018-07-01] MEDS ORDERED: Gabapentin 300 MG CAPSULE PO SCH (21:00)
== END 2018-07-01 15:01 | disposition hospice, inpatient (51) | DRG 872 ==
LOC: EMEROOARM 15:48 → 2ANU 15:48
PROVIDERS: ADMIT Internal Medicine Cardiovascular Disease; ATTEND Internal Medicine Cardiovascular Disease